=== PATIENT | female | born 1935 | race Caucasian/White ===

== ENCOUNTER → 2024-06-23 07:52 | Outpatient (REF) | payer OTHER, SELFPAY | LOC: DHCBC/DCA 07:52 | PROVIDERS: ATTENDING PHYSICIAN Internal Medicine; FAMILY PHYSICIAN Student in an Organized Health Care Education/Training Program | DX: I48.0 Paroxysmal atrial fibrillation (principal); R06.09 Other forms of dyspnea; I10 Essential (primary) hypertension | CPT/HCPCS: 78452; 93017; A9500; J2785 ==

== ENCOUNTER → 2024-06-29 09:08 | Outpatient (REF) | payer OTHER, SELFPAY | LOC: RCS 09:08 | PROVIDERS: ATTENDING PHYSICIAN Internal Medicine; FAMILY PHYSICIAN Family Medicine | DX: I48.0 Paroxysmal atrial fibrillation (principal); R06.09 Other forms of dyspnea; I10 Essential (primary) hypertension | CPT/HCPCS: 93225; 93226 ==

== ENCOUNTER → 2024-07-01 08:55 | Outpatient (REF) | payer OTHER, SELFPAY | LOC: RCS 08:55 | PROVIDERS: ATTENDING PHYSICIAN Internal Medicine; FAMILY PHYSICIAN Family Medicine | DX: I48.0 Paroxysmal atrial fibrillation (principal); R06.09 Other forms of dyspnea; I10 Essential (primary) hypertension | CPT/HCPCS: 93306 ==

== ENCOUNTER 2024-07-11 00:16 | Emergency (ER) | payer OTHER, SELFPAY ==
[2024-07-11] VITALS (13 sets, daily range): BP systolic 111–191; BP diastolic 51–98
--- NOTE | 2024-07-11 00:27 | ED.GENMED ---
History of Present Illness
General
Chief Complaint: Cardiac Symptoms
Source: patient, records and family
Exam Limitations: none
Time Seen by Provider: 07/11/24 00:21
Nursing documentation reviewed up to this point in time: agreed with
History of Present Illness
History of Present Illness:
Patient is an 88-year-old female who presents to the emergency department from home after developing a headache and upper chest pain waking her from sleep tonight. Initially according to family her speech was somewhat hesitant but not slurred.
Patient does feel lightheaded and off balance. Patient is on Eliquis for atrial fibrillation. Recently the patient was started on valsartan and discontinued from amlodipine. Patient is also on metoprolol. According to family and her [employer]
she was in and out of atrial fibrillation all day and did not feel well. Patient felt somewhat weak and lightheaded. But patient denied any shortness of breath or chest pain at that time. Patient states that the headache felt like a pain in her
sinuses but denies any nasal congestion, sore throat or cough. Patient denies any fever but does admit to chills. Patient was slightly nauseous without abdominal pain, vomiting or diarrhea. The day before last she had been at an event where she
had not ate or drank very much and had felt tired. Patient states this evening she felt very much like when she initially had atrial fibrillation.
Past History
Past History
ED Past Medical History: Arrthythmia (Atrial fibrillation), HTN, Hypercholesterolemia and Other (Psoriatic arthritis, ischemic colitis)
ED Past Surgical History: Other
Social History
Tobacco: Non-smoker
Alcohol: None
Family History
Family History: Negative Diabetes, Hypertension, Early CAD, Asthma or Cancer
Review of Systems
Review of Systems
All Other Systems: ROS reviewed and negative except as documented in HPI and ROS
Constitutional: Reports fatigue and chills; Denies fever
EENT: Reports no symptoms
Respiratory: Reports no symptoms
Cardiac: Reports chest pain and palpitations; Denies diaphoresis or syncope
ABD/GI: Reports nausea; Denies abdominal pain, vomiting, diarrhea or constipated
: Reports no symptoms
Musculoskeletal: Reports back pain (Chronic and unchanged)
Skin: Reports other (Chronic mild psoriasis)
Neurological: Reports no symptoms
Hematologic/Lymphatic: Reports no symptoms
Psychiatric: Reports no symptoms
Phy Exam
Physical Exam
Physical Exam:
Physical Exam
General: mild distress, alert and appropriate, well nourished, well hydrated
HENT: Normocephalic, supple with no lymphadenopathy, no thyromegaly
Eyes: Clear sclera, conjuctiva without injection
Heart: irregular rhythm and normal rate. No S3, S4. Grade 2/6 holosystolic murmur. No NVD, bruit
Lungs: No respiratory distress, no stridor, lung sounds clear and equal bilaterally, chest wall symmetrical and nontender
Abdomen: Soft, nontender, BS good
Neuro: Alert and oriented x 3, CN II - XII intact, no motor focality, no cerebellar dysfunction
Skin: no rash
Psychiatric: well kept. interactive and cooperative
Extremities: No edema, cyanosis, tenderness
Scores
Heart Failure Risk
Heart Failure Risk Score: Not Applicable
Heart Score for Chest Pain Patients
STEMI patient?: Not applicable
Withdrawal Assessment of Alcohol
Withdrawal Assessment Completed?: Not applicable
Course
Orders/Labs/Results
Orders:
Orders
07/11/24 00:21
CT Head W/o Iv Contrast Urgent
Comment:
Reason For Exam: headache on eliquis
0.9% Sodium Chloride 500 ml [Nss] 500 ml IV BOLUS
Morphine Sulfate 2 mg IV NOW STA
Ondansetron Injectable [Zofran] 4 mg IV NOW STA
07/11/24 00:22
Electrocardiogram (*1) Urgent
Reason for Study: Palpitations
EKG- Treatment ONCE
07/11/24 00:34
COVID-19 Antigen Urgent
Source: Nasal Swab
Complete Blood Count/With Diff Urgent
Comprehensive Metabolic Panel Urgent
Magnesium Urgent
Sed Rate [Erythrocyte Sed Rate] Urgent
07/11/24 01:18
Propofol [Diprivan] 20 ml .ROUTE .STK-MED
07/11/24 01:34
EKG [Electrocardiogram (*1)] Urgent
Reason for Study: Atrial Fibrillation
Other Reason for Exam: POST CARDIOVERSION
07/11/24 01:35
EKG- Treatment ONCE
Abnormal Lab Results
07/11/24
00:34
MCHC 32.3 L g/dL
(33.0-37.0)
Absolute Monos (auto) 0.9 H 10^3/uL
(0.1-0.6)
Monocytes % 9.7 H %
(1.7-9.3)
Glucose 117 H mg/dl
(70-99)
07/11/24 00:34
07/11/24 00:34
Vital Signs
Initial and Last Documented VS:
Initial Vital Signs
Pulse Resp BP Pulse Ox
100 20 190/78 100
07/11/24 00:19 07/11/24 00:19 07/11/24 00:19 07/11/24 00:19
Last Documented Vital Signs
Pulse Resp BP Pulse Ox
87 23 174/98 96
07/11/24 01:15 07/11/24 01:15 07/11/24 01:02 07/11/24 01:15
Procedures
Cardioversion
Indication:: Afib
Performed by:: melonie
Synchronized?: Yes
Energy Used: 200 joules
Number of attempts: 1
Successful?: Yes
Complications: none
ASA Risk Score: Class II
Any reaction or bad outcome to prior sedation/anesthesia?: No history of a reaction
Sedation level to be attained: deep
Chart and allergies reviewed: Yes
Patient reassessed prior to sedation: Yes
Time out completed at (validating right patient & procedure): 01:29
History of difficult intubation: No
Airway free of obstruction: Yes
Patient has a gag reflex: Yes
Patient is able to open mouth: Yes
Patient has no dentures: Yes
Patient has no loose teeth: Yes
Medication administered by Provider during Moderate Sedation: IV Propofol (mg)
Total dose administered: 60
Time drug administered: :
Start Time: :29
Stop Time: 01:40
*Radiology
Radiology exam reviewed: radiology read reviewed (ct head ok)
*Pulse Oximetry
Patient hypoxic: no
*EKG
Interpreted by ED Provider?: Yes
EKG Intrepretation Date: 07/11/24
EKG Intrepretation Time: 01:49
Interpretation: abnormal
Comparison EKG: changes noted
Heart Rate: 88
Rate: normal
Rhythm: a-fib
[place]: normal axis
Interval: normal QT interval
QRS Pattern: normal QRS
Ischemia: non-specific ST changes
*Conference Coordinator Interpretation
Rate: normal
Interpretation: abnormal
Heart Rate: 88
Rhythm: a-fib
*Critical Care Note
Total Time (30-74mins, 75-104mins- exclusive of procedures): Not Applicable
Update Note
Update Note:
Repeat EKG showed a rate of 68 and normal sinus rhythm. Patient was successfully converted. Anticipate discharge of the patient.
ED Attending Note
-
Portions of this chart may have been created with voice recognition software.� Occasional wrong word or��sound alike� substitutions may have occurred due to the inherent limitations of voice recognition software.
Discharge Plan
Departure
Patient Disposition: Home (Routine Discharge)
Date of Disposition: 11/26/24
Time of Disposition: 01:49
Patient with high blood pressure during this ER visit?: Yes
Condition: Good
Covid-19: Negative COVID-19
Discharge Problem:
Atrial fibrillation with controlled ventricular rate, Encounter for cardioversion procedure
Instructions: Atrial Fibrillation (DC), MODERATE SEDATION ADULT, BLOOD PRESSURE
Prescriptions:
No Action
quinapril [Accupril] 10 MG tablet
40 mg PO DAILY
etanercept [Enbrel] 50 MG/ML syringe
50 mg SQ PERKINS
hydrochlorothiazide 12.5 MG tablet
12.5 mg PO DAILY
amlodipine 2.5 MG tablet
2.5 mg PO BID
simvastatin 20 MG tablet
20 mg PO QPM
metoprolol tartrate 25 MG tablet
50 mg PO BID
cholecalciferol (vitamin D3) 2,000 UNITS tablet
2,000 units PO DAILY
loperamide 2 MG capsule
2 mg PO Q6HPRN PRN (Reason: diarrhea) 0RF
Lactobac 2-Bifido 1-S. therm [High Potency Probiotic] 1 CAP capsule
1 cap PO DAILY 0RF
amoxicillin-pot clavulanate 1 TABLET tablet
1 tab PO Q12 7 Days Qty: 14 0RF
Rx Instructions:
next dose 9/16 PM
trazodone 50 MG tablet
50 mg PO TID PRN (Reason: anxiety) Qty: 3 0RF
lorazepam 0.5 MG tablet
0.5 mg PO Q4HPRN PRN (Reason: anxiety) Qty: 4 0RF
trazodone 50 MG tablet
50 mg PO TID Qty: 3 0RF
lorazepam 0.5 MG tablet
0.5 mg PO Q4HPRN PRN (Reason: anxiety) Qty: 4 0RF
hydrocodone-acetaminophen 5-325 mg tablet
1 tab PO Q4H PRN (Reason: pain) Qty: 60 0RF
alprazolam [Xanax] 0.5 mg tablet
0.5 mg PO BID PRN (Reason: sleep) Qty: 30 0RF
hydrocodone-acetaminophen 5-325 mg tablet
1 tab PO Q6H PRN (Reason: pain) Qty: 60 0RF
hydrocodone-acetaminophen 5-325 mg tablet
1 tab PO Q4H PRN (Reason: pain) Qty: 60 0RF
hydrocodone-ibuprofen 7.5-200 mg tablet
1 tab PO Q4H PRN (Reason: Pain) Qty: 30 0RF
Eliquis 5 mg tablet
5 mg PO BID Qty: 60 3RF
hydrocodone-acetaminophen 7.5-325 mg tablet
1 tab PO Q6H PRN (Reason: Pain) Qty: 60 0RF
ondansetron [Zofran ODT] 8 MG tablet,disintegrating
8 mg PO TID PRN (Reason: nausea/vomiting) Qty: 30 0RF
Activity Restrictions/Additional Instructions:
Continue present medications and therapy. Make sure to follow-up with your cloth shrinking supervisor and your family physician.
Interventions
Interventions:
*Risk Screen - Suicide Last Done: 07/11/24 00:19
*Neglect/Abuse Screening Last Done: 07/11/24 00:19
Discharge Date and Time
Print Language: CITIZEN OF [place]
[2024-07-11] MEDS: MORPHINE SULFATE 2 MG IV (00:43)
[2024-07-11] MEDS: ZOFRAN 4 MG IV (00:43)
[2024-07-11] MEDS: NSS 500 IV (00:46)
[2024-07-11 00:54] LABS: % Basophils 0.8 % (0-2); % Immature Granulocytes 0.2 % (0-0.5); % Lymphocytes 34.4 % (20.5-51.1); % Monocytes 9.7 % (1.7-9.3); % Neutrophils 53.9 % (42.2-75.2); Absolute Basophils 0.1 10^3/uL (0-0.2); Absolute Eosinophils 0.1 10^3/uL (0-0.7); Absolute Monocytes 0.9 10^3/uL (0.1-0.6); Absolute Neutrophils 4.7 10^3/uL (1.4-6.5); Hematocrit 38.7 % (37.0-47.0); Hemoglobin 12.5 g/dL (12.0-16.0); Mean Corp Hgb Conc. 32.3 g/dL (33.0-37.0); Mean Corpuscular Hgb 29.1 pg (27.0-31.0); Mean Corpuscular Volume 90.2 fL (81.0-99.0); Mean Platelet Volume 9.3 fL (7.4-10.4); Nucleated Red Blood Cells % 0 %; Platelet Count 295 10^3/uL (130-400); Red Blood Cell Count 4.29 10^6/uL (4.20-5.40); Red Cell Dist. Width 12.9 % (11.5-14.5); White Blood Cell Count 8.7 10^3/uL (4.8-10.8)
[2024-07-11 00:57] LABS: ALT (SGPT) 12 U/L (0-35); AST (SGOT) 19 U/L (14-36); Albumin 4.4 g/dl (3.5-5.0); Alkaline Phosphatase 59 U/L (38-126); Blood Urea Nitrogen 17 mg/dl (7-17); Calcium 9.1 mg/dl (8.4-10.2); Carbon Dioxide 27 mmol/L (22-30); Chloride 101 mmol/L (98-107); Glucose 117 mg/dl (70-99); Potassium 4.3 mmol/L (3.5-5.1); Sodium 139 mmol/L (135-145); Total Bilirubin 1.1 mg/dl (0.2-1.3); eGFR > 60.00
[2024-07-11 01:02] LABS: COVID-19 Antigen Negative (Negative)
[2024-07-11 01:10] LABS: Erythrocyte Sed Rate 17 mm/hour (0-20)
--- NOTE | 2024-07-11 01:49 | EDRN ---
At 01:37, following moderate sedation, pt. became apneic for a small period of time, pulse ox. dropped to 87%, BVM initiated by Dr. Chan for a few seconds, then pt. became more alert, breathing on own, nasal cannula turned up to 6L NC,
fluids infusing via bolus, pulse. ox. increased to 97% on 6LNC.
== END 2024-07-11 02:24 | disposition home or self-care (01) ==
LOC: EMR 00:16
PROVIDERS: EMERGENCY PHYSICIAN Emergency Medicine; FAMILY PHYSICIAN Family Medicine
DX: R51.9 Headache, unspecified (principal); R07.89 Other chest pain; I48.91 Unspecified atrial fibrillation; I10 Essential (primary) hypertension; E78.00 Pure hypercholesterolemia, unspecified; L40.50 Arthropathic psoriasis, unspecified; K55.9 Vascular disorder of intestine, unspecified; Z79.01 Long term (current) use of anticoagulants; Z82.49 Family history of ischemic heart disease and other diseases of the circulatory system; Z86.73 Personal history of transient ischemic attack (TIA), and cerebral infarction without residual deficits
CPT/HCPCS: 99284; 92960; 96374; 96375; 70450; 80053; 83735; 85025; 85652; 87811; 93005

== ENCOUNTER 2024-09-03 10:59 | Emergency (ER) | payer OTHER, SELFPAY ==
[2024-09-03] VITALS (12 sets, daily range): BP systolic 103–132; BP diastolic 52–68
--- NOTE | 2024-09-03 11:53 | ED.GENMED ---
History of Present Illness
General
Chief Complaint: Heart Rate Problem
Time Seen by Provider: 09/03/24 11:31
History of Present Illness
History of Present Illness:
Patient is a 89-year-old woman with history of A-fib on Eliquis, hypertension presenting to the emergency department blood pressure issues. Patient's daughter and son-in-law are at bedside. They state that lately she has had changes in her blood
pressure medication she is on amlodipine as well as valsartan. She is also on metoprolol. The notes that she has been going in and out of A-fib with heart rates in the 90s. During those times her blood pressure is occasionally low. The lowest at
home with systolic in the 96. They do note that when she is in normal sinus rhythm her blood pressure is not as problematic. She has been more tired and weak. She has not missed any doses of her Eliquis. Unclear cause of the triggers. Denies
any chest pain shortness of breath nausea vomiting abdominal pain urinary symptoms or rashes.
Past History
Past History
ED Past Medical History: Arrthythmia (Atrial fibrillation), HTN, Hypercholesterolemia and Other (Psoriatic arthritis, ischemic colitis)
ED Past Surgical History: Other
Social History
Tobacco: Non-smoker
Alcohol: None
Family History
Family History: Negative Diabetes, Hypertension, Early CAD, Asthma or Cancer
Phy Exam
Physical Exam
Physical Exam:
GENERAL: in no acute distress
HEENT: normocephalic, extraocular movements intact, moist oral mucosa
NECK: normal inspection
RESPIRATORY: no respiratory distress, clear to auscultation bilaterally
CARDIOVASCULAR: Irregularly irregular
ABDOMEN/: soft, non-distended, non-tender to palpation, no rebound or guarding
EXTREMITIES: non-tender, no edema/swelling
NEUROLOGIC: awake and alert, moves all extremities
SKIN: warm
Course
Orders/Labs/Results
Orders:
Orders
09/03/24 10:59
Electrocardiogram (*1) Urgent
Reason for Study: Atrial Fibrillation
09/03/24 11:00
EKG- Treatment ONCE
09/03/24 12:08
Basic Metabolic Panel Urgent
Complete Blood Count/With Diff Urgent
Magnesium Urgent
09/03/24 12:55
Propofol [Diprivan] 20 ml .ROUTE .STK-MED
09/03/24 13:28
EKG [Electrocardiogram (*1)] Urgent
Reason for Study: Other
Other Reason for Exam: s/p cardioversion
09/03/24 13:29
EKG- Treatment ONCE
Abnormal Lab Results
09/03/24
12:08
Absolute Monos (auto) 0.8 H 10^3/uL
(0.1-0.6)
BUN 20 H mg/dl
(7-17)
Glucose 104 H mg/dl
(70-99)
09/03/24 12:08
09/03/24 12:08
Vital Signs
Initial and Last Documented VS:
Initial Vital Signs
Temp Pulse Resp BP Pulse Ox
98.4 F 80 13 116/63 100
09/03/24 11:09 09/03/24 11:09 09/03/24 11:09 09/03/24 11:09 09/03/24 11:09
Last Documented Vital Signs
Temp Pulse Resp BP Pulse Ox
98.8 F 62 18 104/61 98
09/03/24 13:45 09/03/24 13:45 09/03/24 13:45 09/03/24 13:45 09/03/24 13:45
Procedures
Cardioversion
Indication:: Afib
Performed by:: Dr Jaramillo
Synchronized?: Yes
Energy Used: 200 joules
Number of attempts: 2
Successful?: Yes
ASA Risk Score: Class II
Any reaction or bad outcome to prior sedation/anesthesia?: No history of a reaction
Sedation level to be attained: moderate
Chart and allergies reviewed: Yes
Patient reassessed prior to sedation: Yes
Time out completed at (validating right patient & procedure): 13:20
History of difficult intubation: No
Airway free of obstruction: Yes
Patient has a gag reflex: Yes
Patient is able to open mouth: Yes
Patient has no dentures: Yes
Patient has no loose teeth: Yes
Medication administered by Provider during Moderate Sedation: IV Propofol (mg)
Total dose administered: 40
Time drug administered: 13:21
Start Time: 13:21
Stop Time: 13:40
MDM/Problems Addressed
Differential Diagnosis Includes:
Patient is a 89-year-old woman with history of proximal A-fib on Eliquis, hypertension on amlodipine and valsartan presenting to the emergency department with low blood pressure and feeling as if she is in A-fib. On arrival EKG per my
interpretation A-fib with heart rate in the 70s. Given the hypotension could be related to the arrhythmia versus electrolyte derangement versus CHERYL. Will check blood work. Per chart review it appears the patient had multiple ED visits for
paroxysmal A-fib that required cardioversion. I did discuss cardioversion with patient and family at bedside. Likely anticipate cardioversion for symptomatic A-fib.
*Critical Care Note
Total Time (30-74mins, 75-104mins- exclusive of procedures): Not Applicable
Update Note
Update Note:
Blood work unremarkable. On reevaluation patient still with blood pressure in the low 100s in A-fib with a heart rate in the 80s. Will proceed with cardioversion. It was successful. Please see scanned EKG
On reevaluation patient remains in normal sinus rhythm. Her blood pressure has improved. She tolerated p.o. and ambulated. Will discharge her at this time.
ED Attending Note
-
Portions of this chart may have been created with voice recognition software.� Occasional wrong word or��sound alike� substitutions may have occurred due to the inherent limitations of voice recognition software.
Discharge Plan
Departure
Patient Disposition: Home (Routine Discharge)
Date of Disposition: 09/03/24
Time of Disposition: 14:25
Patient with high blood pressure during this ER visit?: No
Discharge Problem:
Paroxysmal A-fib
Instructions: Atrial Fibrillation (DC), Procedural Sedation, Adult ED
Prescriptions:
No Action
quinapril [Accupril] 10 MG tablet
40 mg PO DAILY
etanercept [Enbrel] 50 MG/ML syringe
50 mg SQ PERKINS
hydrochlorothiazide 12.5 MG tablet
12.5 mg PO DAILY
amlodipine 2.5 MG tablet
2.5 mg PO BID
simvastatin 20 MG tablet
20 mg PO QPM
metoprolol tartrate 25 MG tablet
50 mg PO BID
cholecalciferol (vitamin D3) 2,000 UNITS tablet
2,000 units PO DAILY
loperamide 2 MG capsule
2 mg PO Q6HPRN PRN (Reason: diarrhea) 0RF
Lactobac 2-Bifido 1-S. therm [High Potency Probiotic] 1 CAP capsule
1 cap PO DAILY 0RF
amoxicillin-pot clavulanate 1 TABLET tablet
1 tab PO Q12 7 Days Qty: 14 0RF
Rx Instructions:
next dose 9/16 PM
trazodone 50 MG tablet
50 mg PO TID PRN (Reason: anxiety) Qty: 3 0RF
lorazepam 0.5 MG tablet
0.5 mg PO Q4HPRN PRN (Reason: anxiety) Qty: 4 0RF
trazodone 50 MG tablet
50 mg PO TID Qty: 3 0RF
lorazepam 0.5 MG tablet
0.5 mg PO Q4HPRN PRN (Reason: anxiety) Qty: 4 0RF
hydrocodone-acetaminophen 5-325 mg tablet
1 tab PO Q4H PRN (Reason: pain) Qty: 60 0RF
alprazolam [Xanax] 0.5 mg tablet
0.5 mg PO BID PRN (Reason: sleep) Qty: 30 0RF
hydrocodone-acetaminophen 5-325 mg tablet
1 tab PO Q6H PRN (Reason: pain) Qty: 60 0RF
hydrocodone-acetaminophen 5-325 mg tablet
1 tab PO Q4H PRN (Reason: pain) Qty: 60 0RF
hydrocodone-ibuprofen 7.5-200 mg tablet
1 tab PO Q4H PRN (Reason: Pain) Qty: 30 0RF
Eliquis 5 mg tablet
5 mg PO BID Qty: 60 3RF
hydrocodone-acetaminophen 7.5-325 mg tablet
1 tab PO Q6H PRN (Reason: Pain) Qty: 60 0RF
hydrocodone-acetaminophen 10-325 mg tablet
1 tab PO Q6H PRN (Reason: Pain) Qty: 40 0RF
hydrocodone-acetaminophen 5-325 mg tablet
1 tab PO Q4H PRN (Reason: Pain) Qty: 30 0RF
ondansetron [Zofran ODT] 8 MG tablet,disintegrating
8 mg PO TID PRN (Reason: nausea/vomiting) Qty: 30 0RF
Referrals:
Jerrod Diego MD [Family Provider] -
Activity Restrictions/Additional Instructions:
You were seen in the Emergency Department today for low blood pressure and atrial fibrillation. While you were here we performed blood work, which was reassuring. We did cardiovert you and you are back in your normal rhythm. Please follow-up with
your food service representative for any adjustments in your medications.
We would like for you to follow up with your primary care physician for further evaluation. If you experience fever, worsening of your symptoms, or develop any other new or concerning symptoms, please return to the Emergency Department immediately.
Please see the attached sheet for additional information.
Thank you for choosing us for your care
Interventions
Interventions:
*Risk Screen - Suicide Last Done: 09/03/24 11:09
*General Assessment Last Done: 09/03/24 11:09
*Neglect/Abuse Screening Last Done: 09/03/24 11:09
ED- Fall Risk Assessment Last Done: 09/03/24 11:47
*ED COVID-19 Vaccine History Last Done: 09/03/24 13:38
ED- Cardiac Assessment Last Done: 09/03/24 11:47
ED- Pulmonary Assessment Last Done: 09/03/24 11:47
Discharge Date and Time
Print Language: MAURIT[place]
[2024-09-03 12:20] LABS: % Basophils 1.2 % (0-2); % Eosinophils 1.2 % (0-6); % Immature Granulocytes 0.2 % (0-0.5); % Lymphocytes 23.5 % (20.5-51.1); % Monocytes 9.1 % (1.7-9.3); % Neutrophils 64.8 % (42.2-75.2); Absolute Basophils 0.1 10^3/uL (0-0.2); Absolute Eosinophils 0.1 10^3/uL (0-0.7); Absolute Monocytes 0.8 10^3/uL (0.1-0.6); Absolute Neutrophils 5.4 10^3/uL (1.4-6.5); Hematocrit 38.7 % (37.0-47.0); Hemoglobin 12.8 g/dL (12.0-16.0); Mean Corp Hgb Conc. 33.1 g/dL (33.0-37.0); Mean Corpuscular Hgb 29.3 pg (27.0-31.0); Mean Corpuscular Volume 88.6 fL (81.0-99.0); Mean Platelet Volume 9.5 fL (7.4-10.4); Nucleated Red Blood Cells % 0 %; Platelet Count 328 10^3/uL (130-400); Red Blood Cell Count 4.37 10^6/uL (4.20-5.40); Red Cell Dist. Width 12.5 % (11.5-14.5); White Blood Cell Count 8.4 10^3/uL (4.8-10.8)
[2024-09-03 12:31] LABS: Blood Urea Nitrogen 20 mg/dl (7-17); Calcium 9.4 mg/dl (8.4-10.2); Carbon Dioxide 27 mmol/L (22-30); Chloride 101 mmol/L (98-107); Estimated Creatinine Clearance 36 ml/min; Glucose 104 mg/dl (70-99); Magnesium 2.3 mg/dl (1.6-2.3); Potassium 4.3 mmol/L (3.5-5.1); Sodium 138 mmol/L (135-145); eGFR 54.53
--- NOTE | 2024-09-03 13:23 | EDRN ---
Patient shocked with 200 J by
--- NOTE | 2024-09-03 13:24 | EDRN ---
Patient remains in Afib. Patient shocked second time with 200 J by .
--- NOTE | 2024-09-03 14:30 | EDRN ---
Reviewed discharge instructions with patient and her daughter. Verbalized understanding. Taken to car in wheelchair.
== END 2024-09-03 14:40 | disposition home or self-care (01) ==
LOC: EMR 10:59
PROVIDERS: EMERGENCY PHYSICIAN Student in an Organized Health Care Education/Training Program; FAMILY PHYSICIAN Family Medicine
DX: I48.0 Paroxysmal atrial fibrillation (principal); I10 Essential (primary) hypertension; Z79.01 Long term (current) use of anticoagulants
CPT/HCPCS: 92960; 99285; 99152; 80048; 83735; 85025; 93005

== ENCOUNTER 2024-10-03 13:16 | Inpatient (IN) | payer OTHER, SELFPAY ==
[2024-10-03 13:30] VITALS: BMI 25.0
[2024-10-03 13:34] VITALS: BP 140/55
--- NOTE | 2024-10-03 13:42 | W.PN.CD ---
Today's Communication / Plan
-
*This is the H&P summary. Please see scanned H&P*
Dofetilide loading per protocol
Await EKG
Await BMP for renal assessment
Impression / Plan
-
IMPRESSION/PLAN: 89F with paroxysmal atrial fibrillation (DCCVs on�03/12/2023, 07/11/2024, 09/03/2024, on Eliquis), labile hypertension, moderate tricuspid regurgitation, mild to moderate aortic regurgitation, mild to moderate mitral regurgitation,
hyperlipidemia, and psoriatic arthritis presenting for dofetilide loading.
Primary Technical Staff Assistant: Dr. Oliva (formerly Dr. Andrade)
Paroxysmal atrial fibrillation
-Symptomatic recurrent episodes, plan for dofetilide loading
-EKG and BNP and then start dofetilide loading per protocol, this requires intensive monitoring
-Oral Anticoagulation: Apixaban 5 mg twice daily, she denies missed doses and abnormal bleeding
-[id number]: score at least 4 (HTN, age 75 or more, female gender)
-Maintain telemetry
Hypertension, labile
-Continue outpatient regimen, follow
Tricuspid regurgitation, moderate
Aortic regurgitation, mild to moderate
Mitral regurgitation, mild to moderate
Mixed hyperlipidemia, on simvastatin
RA, on weekly Enbrel
SUBJECTIVE:
Denies chest pain, shortness of breath, and dizziness
Physical Exam
Vital Signs/Labs
Vital Signs
Temp Pulse Resp Pulse Ox
98.2 F 68 18 99
10/03/24 13:39 10/03/24 13:39 10/03/24 13:39 10/03/24 13:39
Physical Exam
Constitutional: No acute distress and Comfortable
EENT: Anicteric and Moist mucous membranes
Cardiovascular: Rhythm & rate is regular, Pedal edema is absent, Systolic murmur present and S1S2 is normal
Respiratory: Respiratory effort normal and Lungs clear to auscul.
GI: Soft, Distention absent, Flat, Non tender and Normal bowel sounds
Neuro/Psych: AO x 3
Other: Skin (warm and dry)
Data Reviewed
-
Date of Service: October 03, 2024
EKG: Ordered by me
Labs: Labs Ordered by me
Old Records: Reviewed
--- NOTE | 2024-10-03 14:40 | W.CARD.TIKOS ---
Initiate Tikosyn
-
I verify that the patient has not taken any verapamil (Isoptin/Calan), ketoconazole (Nizoral), cimetidine (Tagamet), trimethoprim (Trimpex), trimethoprim/sulfamethoxazole (Bactrim), megesterol (Megace), prochlorperazine (Compazine),
hydrochlorothiazide (HCTZ), dolutegravir (Tivicay) or any Class I or Class III anti-arrhythmic within the last three days
AND
I verify that the patient has not taken amiodarone within the last THREE months, or that the patient's amiodarone plasma concentration is <0.3 mcg/mL.
Baseline QTc (in msec): 420
QTc interval is greater than 440msec without conduction abnormality OR greater than 500msec with a conduction abnormality, but acceptable to proceed per Cardiology attending.
Ordering Physician: Syed Oliva
[2024-10-03 15:52] LABS: Blood Urea Nitrogen 19 mg/dl (7-17); Calcium 9.2 mg/dl (8.4-10.2); Carbon Dioxide 30 mmol/L (22-30); Chloride 100 mmol/L (98-107); Estimated Creatinine Clearance 39 ml/min; Glucose 97 mg/dl (70-99); Potassium 4.8 mmol/L (3.5-5.1); Sodium 135 mmol/L (135-145); eGFR > 60.00
[2024-10-03 16:14] VITALS: BMI 25.0
[2024-10-03] MEDS: LIPITOR 10 MG PO (18:25)
[2024-10-03] MEDS: TIKOSYN 125 MCG PO (18:25)
[2024-10-03 19:00] VITALS: BP 150/61
--- NOTE | 2024-10-03 19:18 | PTCARENOTE ---
Received pt as a direct admission for tikosyn loading. VSS. Discussed tikosyn protocol. Encouraged questions. Pt verbalized understanding. Will monitor.
[2024-10-03 20:26] VITALS: BP 141/54
[2024-10-03] MEDS: LOPRESSOR 12.5 MG PO (20:26)
[2024-10-03] MEDS: ELIQUIS 5 MG PO (20:27)
[2024-10-03] MEDS: NORVASC 2.5 MG PO (20:27)
[2024-10-03 22:14] VITALS: BP 127/47
--- NOTE | 2024-10-03 23:00 | PTCARENOTE ---
report received from previous RN, walking rounds done. pt sleeping. VSS. NSR 60s-70s. POX 99% on room air. PIV intact and patent. see worklist for full assessment, VS, and interventions.
[2024-10-04] VITALS (7 sets, daily range): BP systolic 110–163; BP diastolic 42–65; BMI 25.0
--- NOTE | 2024-10-04 02:40 | DOWNTIME ---
There was a [employer] Client Manager Document Downtime on 10/04/2024 from 0100 to 10/04/2023 at 0235 . Downtime documentation of patient's care, including medication administrations, has been reconciled in the electronic record per guidelines. Refer to the
patient's paper chart under the miscellaneous tab to see printed paper medication records and downtime forms.
[2024-10-04] MEDS: TIKOSYN 125 MCG PO ×2 (05:51→18:08)
--- NOTE | 2024-10-04 05:55 | PTCARENOTE ---
no changes in assessment, VSS. SR 60s. POX 97% on room air. 2nd dose of Tikosyn given. EKG ordered for 0800. pt resting between care.
[2024-10-04] MEDS: ELIQUIS 5 MG PO ×2 (08:14→19:27)
[2024-10-04] MEDS: VITAMIN D3 (cholecalciferol) 50 MCG PO (08:14)
[2024-10-04] MEDS: NORVASC 2.5 MG PO ×2 (08:14→19:27)
[2024-10-04] MEDS: LOPRESSOR 12.5 MG PO ×2 (08:14→19:27)
[2024-10-04] MEDS: DIOVAN 160 MG PO (08:14)
--- NOTE | 2024-10-04 08:38 | W.PN.CD ---
Today's Communication / Plan
-
-QTc remains stable; has received 2 doses of Tikosyn thus far.
-Continue child monitor; telemetry stable.
Impression / Plan
-
IMPRESSION/PLAN: 89F with paroxysmal atrial fibrillation (DCCVs on�03/12/2023, 07/11/2024, 09/03/2024, on Eliquis), labile hypertension, moderate tricuspid regurgitation, mild to moderate aortic regurgitation, mild to moderate mitral regurgitation,
hyperlipidemia, and psoriatic arthritis presenting for dofetilide loading.
Primary Web Content Director: Dr. Oliva (formerly Dr. Andrade)
Paroxysmal atrial fibrillation--Tikosyn loading:
-Symptomatic recurrent episodes, plan for dofetilide loading
-QTc remains stable; has received 2 doses of Tikosyn thus far.
-Oral Anticoagulation: Continue Apixaban 5 mg twice daily; she denies missed doses and abnormal bleeding.
-[id number]: score at least 4 (HTN, age 75 or more, female gender)
-Continue child monitor; telemetry stable.
Hypertension, labile
-Stable; continue current medications.
Tricuspid regurgitation, moderate
Aortic regurgitation, mild to moderate
Mitral regurgitation, mild to moderate
Mixed hyperlipidemia, on simvastatin
RA, on weekly Enbrel
SUBJECTIVE:
Denies chest pain, shortness of breath, and dizziness
Physical Exam
Vital Signs/Labs
Vital Signs
Temp Pulse Resp BP Pulse Ox
98.3 F 72 20 140/50 95
10/04/24 07:24 10/04/24 08:14 10/04/24 07:24 10/04/24 08:14 10/04/24 07:24
10/03/24 10/04/24 10/05/24
06:59 06:59 06:59
Actual Weight 67.1 kg
10/03/24 15:28
Physical Exam
Constitutional: No acute distress and Comfortable
EENT: Anicteric
Cardiovascular: Rhythm & rate is regular, Pedal edema is absent, Systolic murmur present (2/6) and S1S2 is normal
Respiratory: Respiratory effort normal and Lungs clear to auscul.
GI: Soft
Neuro/Psych: AO x 3
Other: Skin (Warm, dry, intact)
Data Reviewed
-
Date of Service: October 04, 2024
EKG: Tracing Personally Visualized and interpreted (Telemetry: Sinus rhythm)
Labs: Labs Reviewed by me
--- NOTE | 2024-10-04 14:45 | CM ---
CM following for DC planning needs.
CM met w/ patient and 2 dtrs. at bedside to complete initial assessment.
Pt. resides alone in a private, [place]+ community, in a [address] home. Functionally, patient is indep. w/ ADLs, mobilities. She uses a SPC occasionally and has a RW at home if needed but does not use.
Pt. has prescription plan and uses [facility] in [place] for prescription needs.
Antic. DC to home without needs once medically stable.
[2024-10-04] MEDS: LIPITOR 10 MG PO (18:07)
--- NOTE | 2024-10-04 19:00 | PTCARENOTE ---
report received from previous RN, walking rounds done. pt AAOx4, pt denies any pain. VSS. NSR 60s-70s. POX 95% on room air. PIV intact and patent. EKG ordered for 1999. see worklist for full assessment, VS, and interventions. pt resting comfortably
w call mackey in reach.
--- NOTE | 2024-10-04 19:13 | PTCARENOTE ---
Discussed roseannesyn protocol w/ pt. Pt verbalized understanding. Will monitor.
[2024-10-05 05:31] VITALS: BP 161/55
[2024-10-05] MEDS: TIKOSYN 125 MCG PO ×2 (06:10→17:53)
--- NOTE | 2024-10-05 06:15 | PTCARENOTE ---
no changes in assessment, VSS. NSR 60s-70s. POX 96% on room air. 0600 Tikosyn given. EKG ordered for 0800. pt sleeping between care.
[2024-10-05 07:36] VITALS: BP 138/52
[2024-10-05] MEDS: LOPRESSOR 12.5 MG PO ×2 (08:38→19:58)
[2024-10-05] MEDS: VITAMIN D3 (cholecalciferol) 50 MCG PO (08:38)
[2024-10-05] MEDS: DIOVAN 160 MG PO (08:38)
[2024-10-05] MEDS: ELIQUIS 5 MG PO ×2 (08:38→19:59)
[2024-10-05] MEDS: NORVASC 2.5 MG PO ×2 (08:38→19:59)
--- NOTE | 2024-10-05 08:41 | W.PN.CD ---
Today's Communication / Plan
-
continue tikosyn 125mcg q12hr
-doses # 4 and 5 today
Impression / Plan
-
IMPRESSION/PLAN: 89F with paroxysmal atrial fibrillation (DCCVs on�03/12/2023, 07/11/2024, 09/03/2024, on Eliquis), labile hypertension, moderate tricuspid regurgitation, mild to moderate aortic regurgitation, mild to moderate mitral regurgitation,
hyperlipidemia, and psoriatic arthritis presenting for dofetilide loading.
Primary Clamshell Operator: Dr. Oliva (formerly Dr. Andrade)
Paroxysmal atrial fibrillation--Tikosyn loading:
-this requires close monitoring of tele and EKG for 6 doses
-Symptomatic recurrent episodes of A fib
-Oral Anticoagulation: Continue Apixaban 5 mg twice daily; she denies missed doses and abnormal bleeding.
-[id number]: score at least 4 (HTN, age 75 or more, female gender)
-continue tikosyn 125mcg q12hr
-doses # 4 and 5 today
-QTc has been stable 450-460msec
Hypertension, labile
-Stable; continue current medications (amlodipine, valsartan)
Tricuspid regurgitation, moderate
Aortic regurgitation, mild to moderate
Mitral regurgitation, mild to moderate
Mixed hyperlipidemia, on simvastatin
RA, on weekly Enbrel
Physical Exam
Vital Signs/Labs
Vital Signs
Temp Pulse Resp BP Pulse Ox
98.6 F 58 20 127/42 98
10/05/24 07:36 10/04/24 23:00 10/05/24 07:36 10/04/24 19:27 10/05/24 07:36
10/04/24 10/05/24 10/06/24
06:59 06:59 06:59
Actual Weight 67.1 kg
10/03/24 15:28
Physical Exam
Constitutional: No acute distress and Comfortable
EENT: Moist mucous membranes
Cardiovascular: Rhythm & rate is regular, Pedal edema is absent, JVD pressure is normal and Systolic murmur present
Respiratory: Respiratory effort normal and Lungs clear to auscul.
Neuro/Psych: AO x 3
Data Reviewed
-
Date of Service: October 05, 2024
EKG: Tracing Personally Visualized and interpreted (NSR 69, QTc 452) and Other (Tele: SR/SB 50s-60s)
--- NOTE | 2024-10-05 10:06 | PTCARENOTE ---
Patient comfortable, denies pain or shortness of breath. NSR on telemetry. Dose #4 of Tikosyn given at 0600, EKG 0800 QTC 432. Plan of care reviewed with patient, call mackey in reach
[2024-10-05 11:03] VITALS: BP 115/55
[2024-10-05 15:34] VITALS: BP 113/53
[2024-10-05] MEDS: LIPITOR 10 MG PO (17:53)
[2024-10-05 19:53] VITALS: BP 127/43
--- NOTE | 2024-10-05 21:09 | PTCARENOTE ---
assumed care of patient at the change of shift. AAOx3. independent in the room. SR on tele 60s-70s. bp stable. QTc post 5th dose Tikosyn- 441. reviewed plan of care with patient and verbalized understanding. call mackey within reach. makes needs
known.
[2024-10-05 22:41] VITALS: BP 123/50
[2024-10-06 04:38] VITALS: BP 142/58
[2024-10-06] MEDS: TIKOSYN 125 MCG PO (06:02)
[2024-10-06 06:03] VITALS: BP 144/50
[2024-10-06 08:30] VITALS: BP 127/47
[2024-10-06] MEDS: LOPRESSOR 12.5 MG PO (08:50)
[2024-10-06] MEDS: VITAMIN D3 (cholecalciferol) 50 MCG PO (08:50)
[2024-10-06] MEDS: DIOVAN 160 MG PO (08:50)
[2024-10-06] MEDS: NORVASC 2.5 MG PO (08:50)
[2024-10-06] MEDS: ELIQUIS 5 MG PO (08:50)
--- NOTE | 2024-10-06 10:12 | W.PN.CD ---
Today's Communication / Plan
-
continue tikosyn 125mcg q12hr
needs final EKG this AM to make sure stable for d/c
Impression / Plan
-
IMPRESSION/PLAN: 89F with paroxysmal atrial fibrillation (DCCVs on�03/12/2023, 07/11/2024, 09/03/2024, on Eliquis), labile hypertension, moderate tricuspid regurgitation, mild to moderate aortic regurgitation, mild to moderate mitral regurgitation,
hyperlipidemia, and psoriatic arthritis presenting for dofetilide loading.
Primary Public Administration Professor: Dr. Oliva (formerly Dr. Andrade)
Paroxysmal atrial fibrillation--Tikosyn loading: high risk medication
-this requires close monitoring of tele and EKG for 6 doses
-Symptomatic recurrent episodes of A fib
-Oral Anticoagulation: Continue Apixaban 5 mg twice daily; she denies missed doses and abnormal bleeding.
-[id number]: score at least 4 (HTN, age 75 or more, female gender)
-continue tikosyn 125mcg q12hr
-doses # 6 today
-QTc has been stable: last 441 msec
-needs final EKG this AM to make sure stable for d/c
Hypertension, labile
-Stable; continue current medications (amlodipine, valsartan)
Tricuspid regurgitation, moderate
Aortic regurgitation, mild to moderate
Mitral regurgitation, mild to moderate
Mixed hyperlipidemia, on simvastatin
RA, on weekly Enbrel
Physical Exam
Vital Signs/Labs
Vital Signs
Temp Pulse Resp BP Pulse Ox
98.3 F 67 16 127/47 95
10/06/24 04:38 10/06/24 09:00 10/06/24 04:38 10/06/24 08:30 10/06/24 04:38
10/03/24 15:28
Physical Exam
Constitutional: No acute distress and Comfortable
EENT: Moist mucous membranes
Cardiovascular: Rhythm & rate is regular, Pedal edema is absent, JVD pressure is normal and Systolic murmur present
Respiratory: Respiratory effort normal and Lungs clear to auscul.
Neuro/Psych: AO x 3
Data Reviewed
-
Date of Service: October 06, 2024
EKG: Tracing Personally Visualized and interpreted (NSR, QTc 441) and Other (SR 60s, no arrhythmias)
--- NOTE | 2024-10-06 11:44 | W.DS.TRANS ---
DC Summary - Clinical Nurse Educator
-
Discharge Instructions:
Sleep Apnea Risk Intermediate
Discharge Diagnosis/Procedures Dofetilide loading
Paroxysmal atrial fibrillation
Diet Low Sodium
Activity No restrictions
Driving Restrictions As prior to admission
Bathing Restrictions None
Instructions:
Stand-Alone Forms:
Changes to Home Medications: Yes
Discharge Medications:
DC Medications w/original date entered in [facility]
etanercept 50 mg/mL (1 mL) subcutaneous syringe (Enbrel) 50 mg SQ PERKINS 06/28/09
amlodipine 2.5 mg tablet 2.5 mg PO BID 06/29/20
cholecalciferol (vitamin D3) 50 mcg (2,000 unit) tablet 2,000 units PO DAILY 06/29/20
simvastatin 20 mg tablet 20 mg PO QPM 06/29/20
apixaban 5 mg tablet (Eliquis) 5 mg PO BID #60 tabs 03/12/23
metoprolol tartrate 25 mg tablet 12.5 mg PO BID 10/03/24
dofetilide 125 mcg capsule 125 mcg PO Q12H #60 caps 10/06/24
valsartan 160 mg tablet 160 mg PO DAILY #30 tabs 10/06/24
Home Medication Changes
Valsartan reduced to 160 daily.
Tikosyn is new.
Pending Results: No
[2024-10-06 11:53] VITALS: BP 132/50
--- NOTE | 2024-10-06 12:59 | PTCARENOTE ---
IV and tele removed. Discharge instructions reviewed w/ pt and family member. Verbalizes understanding. Belongings collected and sent home w/ pt. Escorted via WC and staff assist. Discharged to home.
--- NOTE | 2024-10-06 13:02 | CM ---
CM following for DC planning needs.
Pt. for DC to home today. Met w/ patient, dtr. at bedside.
Pt. reports that she is feeling well and prepared for DC home.
Provided coupon for Dofetilide thru [employer] in the event that insurance copay is more costly than [employer] coupon.
No further needs identified. Plan is for home, no needs.
== END 2024-10-06 13:00 | disposition home or self-care (01) | DRG 310 ==
LOC: IVU 13:16
PROVIDERS: ADMITTING PHYSICIAN Internal Medicine
DX: I48.0 Paroxysmal atrial fibrillation (principal); I10 Essential (primary) hypertension; I08.3 Combined rheumatic disorders of mitral, aortic and tricuspid valves; E78.5 Hyperlipidemia, unspecified; M06.9 Rheumatoid arthritis, unspecified; L40.50 Arthropathic psoriasis, unspecified
CPT/HCPCS: 80048; 93005

== ENCOUNTER 2025-07-09 10:15 | Outpatient (RCR) | payer OTHER, SELFPAY | END 2025-07-13 23:59 | disposition home or self-care (01) | LOC: RPT 10:15 | PROVIDERS: ATTENDING PHYSICIAN Family Medicine; FAMILY PHYSICIAN Family Medicine | DX: M25.562 Pain in left knee (principal); R26.89 Other abnormalities of gait and mobility; Z73.6 Limitation of activities due to disability; R26.2 Difficulty in walking, not elsewhere classified; M62.81 Muscle weakness (generalized); G89.29 Other chronic pain; L40.50 Arthropathic psoriasis, unspecified; M54.50 Low back pain, unspecified; M54.2 Cervicalgia | CPT/HCPCS: 97110; 97162; 97530 ==

== ENCOUNTER 2025-07-20 09:47 | Day surgery (SDC) | payer OTHER, SELFPAY | END 2025-07-20 11:38 | disposition home or self-care (01) | LOC: CATH 09:47 | PROVIDERS: ATTENDING PHYSICIAN Internal Medicine; FAMILY PHYSICIAN Family Medicine; OTHER PHYSICIAN Internal Medicine | DX: I48.19 Other persistent atrial fibrillation (principal); I10 Essential (primary) hypertension; E78.2 Mixed hyperlipidemia; Z79.01 Long term (current) use of anticoagulants; Z80.0 Family history of malignant neoplasm of digestive organs; M81.0 Age-related osteoporosis without current pathological fracture; I47.10 Supraventricular tachycardia, unspecified; L40.50 Arthropathic psoriasis, unspecified | CPT/HCPCS: 92960; 93005 ==

== ENCOUNTER 2025-07-31 08:56 | Outpatient (RCR) | payer OTHER, SELFPAY | END 2025-08-02 23:59 | disposition home or self-care (01) | LOC: RPT 08:56 | PROVIDERS: ATTENDING PHYSICIAN Family Medicine; FAMILY PHYSICIAN Family Medicine | DX: M25.562 Pain in left knee (principal); R26.89 Other abnormalities of gait and mobility; Z73.6 Limitation of activities due to disability; R26.2 Difficulty in walking, not elsewhere classified; M62.81 Muscle weakness (generalized); G89.29 Other chronic pain; L40.50 Arthropathic psoriasis, unspecified; M54.50 Low back pain, unspecified; M54.2 Cervicalgia | CPT/HCPCS: 97110 ==

== ENCOUNTER 2025-08-06 09:12 | Emergency (ER) | payer OTHER, SELFPAY ==
[2025-08-06] VITALS (7 sets, daily range): BP systolic 134–161; BP diastolic 51–70; BMI 26.1
--- NOTE | 2025-08-06 10:41 | ED.GENMED ---
History of Present Illness
General
Chief Complaint: Heart Rate Problem
Source: patient and other (Son-in-law/physician)
Exam Limitations: none
Time Seen by Provider: 08/06/25 09:22
History of Present Illness
History of Present Illness:
89-year-old with history of PAF. Recent cardioversion. On Tikosyn. Presents with weakness and atrial fibrillation. Lightheadedness. Started 2 to 3 days ago. On Eliquis. Faithful with medications.
Past History
Past History
ED Past Medical History: Arrthythmia (Atrial fibrillation), HTN, Hypercholesterolemia and Other (Psoriatic arthritis, ischemic colitis)
ED Past Surgical History: Other
Social History
Tobacco: Non-smoker
Alcohol: None
Family History
Family History: Negative Diabetes, Hypertension, Early CAD, Asthma or Cancer
Review of Systems
Review of Systems
All Other Systems: Not applicable
Respiratory: Reports no symptoms
Cardiac: Denies chest pain or syncope
Phy Exam
Physical Exam
Physical Exam:
GENERAL: Alert and oriented in no apparent distress
EYE: Orbits normal.
NECK: Supple, no significant adenopathy.
ENT: Pharynx without erythema. Airway clear. No loose dentures or teeth
CARDIAC: Irregular irregular
LUNGS: Clear breath sounds,normal
ABDOMEN: Soft, without focal tenderness or distention
NEUROLOGICAL: Alert and oriented , grossly non-focal
SKIN: Warm and dry, no rash or lesion, no discoloration, skin intact.
MUSCULOSKELETAL: No edema,no deformity.Good color
PSYCH: Normal and appropriate interaction.
Course
Orders/Labs/Results
Orders:
Orders
08/06/25 09:14
ECG [Electrocardiogram (*1)] Urgent
Reason for Study: Abnormal EKG
EKG- Treatment ONCE
08/06/25 09:43
Propofol [Diprivan] 20 ml .ROUTE .STK-MED
08/06/25 09:56
ECG [Electrocardiogram (*1)] Urgent
Reason for Study: Atrial Fibrillation
EKG- Treatment ONCE
08/06/25 10:06
Straight cath- Treatment ONCE
08/06/25 10:15
Urine Culture Urgent
SOURAV Source: Urine
Specimen Description:
Obtained by: Straight Cath
Date Specimen was Collected: 08/06/25
Time Specimen was Collected: 10:07
Vital Signs
Initial and Last Documented VS:
Initial Vital Signs
Temp Pulse Resp BP Pulse Ox
98.1 F 86 16 161/70 97
08/06/25 09:18 08/06/25 09:18 08/06/25 09:18 08/06/25 09:18 08/06/25 09:18
Last Documented Vital Signs
Temp Pulse Resp BP Pulse Ox
98.1 F 57 19 147/68 100
08/06/25 09:18 08/06/25 11:00 08/06/25 11:00 08/06/25 11:00 08/06/25 10:43
Procedures
Moderate Sedation
Moderate Sedation Procedure End Time: 10:05
Cardioversion
Indication:: Afib
Performed by:: Myself
Synchronized?: Yes
Energy Used: 200 joules
Number of attempts: 1
Successful?: Yes
ASA Risk Score: Class III
Any reaction or bad outcome to prior sedation/anesthesia?: No history of a reaction
Sedation level to be attained: moderate
Chart and allergies reviewed: Yes
Patient reassessed prior to sedation: Yes
Time out completed at (validating right patient & procedure): 09:54
History of difficult intubation: No
Airway free of obstruction: Yes
Patient has a gag reflex: Yes
Patient is able to open mouth: Yes
Patient has no dentures: Yes
Patient has no loose teeth: No
Medication administered by Provider during Moderate Sedation: IV Propofol (mg)
Total dose administered: 40
Time drug administered: 09:54
Start Time: 09:54
Stop Time: 10:05
*Pulse Oximetry
SaO2: 100
Oxygen Mode of Delivery: Room air
Patient hypoxic: no (97)
*Critical Care Note
Total Time (30-74mins, 75-104mins- exclusive of procedures): Not Applicable
Update Note
Update Note:
Patient tolerated well. Repeat EKG normal sinus rhythm mildly bradycardic. Some poor R wave progression. No acute changes. We did order a urinalysis at the request of patient's son-in-law who is a physician for recurrent UTI issues. On Cipro
currently. Recent labs were all stable. No indication for lab testing
1100... Doing well. Ready to go home. Has remained stable. Normal sinus rhythm
ED Attending Note
-
Portions of this chart may have been created with voice recognition software.� Occasional wrong word or��sound alike� substitutions may have occurred due to the inherent limitations of voice recognition software.
Discharge Plan
Departure
Patient Disposition: Home (Routine Discharge)
Date of Disposition: 08/06/25
Time of Disposition: 10:58
Patient with high blood pressure during this ER visit?: Yes
Discharge Problem:
Paroxysmal atrial fibrillation, Recurrent UTI
Instructions: Atrial Fibrillation (DC), MODERATE SEDATION ADULT, BLOOD PRESSURE
Prescriptions:
No Action
Enbrel 50 MG/ML syringe
50 mg SQ PERKINS
amlodipine 2.5 MG tablet
2.5 mg PO BID
simvastatin 20 MG tablet
20 mg PO QPM
cholecalciferol (vitamin D3) 2,000 UNITS tablet
2,000 units PO DAILY
Eliquis 5 mg tablet
5 mg PO BID Qty: 60 3RF
metoprolol tartrate 25 mg Tablet
12.5 mg PO BID
dofetilide 125 mcg Capsule
125 mcg PO Q12H Qty: 60 3RF
valsartan 160 mg Tablet
160 mg PO DAILY Qty: 30 0RF
Referrals:
Jerrod Diego MD [Family Provider, [facility]]
Activity Restrictions/Additional Instructions:
Follow-up closely with your image scientist
Interventions
Interventions:
*General Assessment Last Done: 08/06/25 09:39
*Neglect/Abuse Screening Last Done: 08/06/25 09:39
*ED COVID-19 Vaccine History Last Done: 08/06/25 09:39
*ED Influenza Vaccine History Last Done: 08/06/25 09:39
*Risk Screen - Suicide (C-SSRS) Last Done: 08/06/25 09:39
*Nursing Disposition Last Done: 08/06/25 11:18
ED- Cardiac Assessment Last Done: 08/06/25 09:47
ED- Pulmonary Assessment Last Done: 08/06/25 09:47
Discharge Date and Time
Discharge Date/Time: 08/06/25 11:19
Print Language: HAITIAN
== END 2025-08-06 11:19 | disposition home or self-care (01) ==
LOC: EMR 09:12
PROVIDERS: EMERGENCY PHYSICIAN Emergency Medicine; FAMILY PHYSICIAN Family Medicine
DX: I48.0 Paroxysmal atrial fibrillation (principal); N39.0 Urinary tract infection, site not specified; I10 Essential (primary) hypertension; E78.00 Pure hypercholesterolemia, unspecified; L40.50 Arthropathic psoriasis, unspecified; Z79.01 Long term (current) use of anticoagulants; Z87.440 Personal history of urinary (tract) infections
CPT/HCPCS: 99285; 87086; 93005

== ENCOUNTER 2025-08-10 04:25 | Inpatient (IN) | payer OTHER, SELFPAY ==
[2025-08-10] VITALS (14 sets, daily range): BP systolic 124–166; BP diastolic 55–86; BMI 19.5; BMI 25.7
[2025-08-10 01:06] LABS: ALT (SGPT) 32 U/L (0-35); AST (SGOT) 72 U/L (14-36); Albumin 4.6 g/dl (3.5-5.0); Alkaline Phosphatase 84 U/L (38-126); Blood Urea Nitrogen 14 mg/dl (7-17); Calcium 9.0 mg/dl (8.4-10.2); Carbon Dioxide 27 mmol/L (22-30); Chloride 99 mmol/L (98-107); Estimated Creatinine Clearance 46 ml/min; Glucose 170 mg/dl (70-99); Lipase 102 U/L (23-300); Potassium 3.2 mmol/L (3.5-5.1); Sodium 136 mmol/L (135-145); Total Protein 7.5 g/dl (6.3-8.2); eGFR > 60.00
[2025-08-10 01:10] LABS: Hematocrit 35.0 % (37.0-47.0); Hemoglobin 11.6 g/dL (12.0-16.0); Mean Corp Hgb Conc. 33.1 g/dL (33.0-37.0); Mean Corpuscular Volume 88.6 fL (81.0-99.0); Nucleated Red Blood Cells % 0 %; Platelet Count 343 10^3/uL (130-400); Red Cell Dist. Width 12.4 % (11.5-14.5)
--- NOTE | 2025-08-10 01:17 | ED.GENMED ---
History of Present Illness
General
Chief Complaint: Abdominal Symptoms
Time Seen by Provider: 08/10/25 01:06
Nursing documentation reviewed up to this point in time: agreed with
History of Present Illness
History of Present Illness:
89-year-old female presents to the ER via EMS for evaluation of mid back pain which started abruptly around 10:00. Patient reports severe nausea and vomiting associated with it. She denies any recent change in bowel habits. She had roast beef for
dinner around 6 PM. She denies any prior history of similar discomforts. No chest pain. No shortness of breath. No parasthesias to arms or legs. She was given zofran en route to the ED with improvement in symptoms. She reports the pain to be a
2-3/10 at current. She did have an episode of retching while in the ED and was unable to catch her breath with SpO2 to 66 as per family at bedside.
Past History
Past History
ED Past Medical History: Arrthythmia (Atrial fibrillation), HTN, Hypercholesterolemia and Other (Psoriatic arthritis, ischemic colitis)
ED Past Surgical History: Other
Social History
Tobacco: Non-smoker
Alcohol: None
Family History
Family History: Negative Diabetes, Hypertension, Early CAD, Asthma or Cancer
Review of Systems
Review of Systems
Allergies reviewed?: Yes
Phy Exam
Physical Exam
Physical Exam:
Patient is awake, alert, appears in no acute distress, head is NCAT, PERRL, EOMI mucous membranes moist, conjunctiva pink, heart regular rate and rhythm without murmurs or ectopy, lungs are clear to auscultation without wheezes rales or rhonchi, no
pain on palpation of thoracic or lumbar spine, no JVD, abdomen is soft and nontender on palpation, negative bone's extremities without edema, 2+ radial and DP pulses symmetric, GCS is 15
Course
Orders/Labs/Results
Orders:
Orders
08/10/25 00:21
ECG [Electrocardiogram (*1)] Urgent
Reason for Study: Atrial Fibrillation
EKG- Treatment ONCE
08/10/25 00:32
IV Insert/Care/Rem.- Treatment PRN
08/10/25 00:34
Complete Blood Count/With Diff Urgent
Troponin I Urgent
08/10/25 00:35
Comprehensive Metabolic Panel Urgent
Lipase Urgent
08/10/25 01:16
CT Chest/abd/pelvis Angio W/wo Urgent
Comment:
Reason For Exam: back pain, vomiting, r/o dissection
08/10/25 01:17
0.9% Sodium Chloride 500 ml [Nss] 500 ml IV BOLUS
08/10/25 01:34
Morphine Sulfate 4 mg IV NOW STA
Ondansetron Injectable [Zofran] 4 mg IV NOW STA
Potassium Chloride [KCl] 20 meq 0.9% Sodium Chloride 150 ml [Nss] 150 ml IV NOW
Abnormal Lab Results
08/10/25 08/10/25
00:34 00:35
WBC 16.5 H 10^3/uL
(4.8-10.8)
RBC 3.95 L 10^6/uL
(4.20-5.40)
Hgb 11.6 L g/dL
(12.0-16.0)
Hct 35.0 L %
(37.0-47.0)
Abs Immat Gran (auto) 0.1 H 10^3/uL
(0-0.05)
Absolute Neuts (auto) 14.0 H 10^3/uL
(1.4-6.5)
Absolute Monos (auto) 0.9 H 10^3/uL
(0.1-0.6)
Neutrophils % 84.8 H %
(42.2-75.2)
Lymphocytes % 8.5 L %
(20.5-51.1)
Potassium 3.2 L mmol/L
(3.5-5.1)
Glucose 170 H mg/dl
(70-99)
Total Bilirubin 1.6 H mg/dl
(0.2-1.3)
AST 72 H U/L
(14-36)
08/10/25 00:34
08/10/25 00:35
White blood count elevated. Mild anemia noted at 11.6, no indication for transfusion. Mild hypokalemia seen. Kidney function preserved.
Vital Signs
Initial and Last Documented VS:
Initial Vital Signs
Temp Pulse Resp BP Pulse Ox
98 F 78 16 149/69 98
08/10/25 00:23 08/10/25 00:23 08/10/25 00:23 08/10/25 00:23 08/10/25 00:23
Last Documented Vital Signs
Temp Pulse Resp BP Pulse Ox
98 F 79 19 142/69 99
08/10/25 00:23 08/10/25 03:00 08/10/25 03:00 08/10/25 03:00 08/10/25 03:00
MDM/Problems Addressed
Differential Diagnosis Includes:
Differential diagnosis to consider but not limited to aortic dissection, biliary colic, esophageal perforation, ACS, gastroenteritis along with other etiologies considered
Chronic conditions affecting care:
Atrial fibrillation on long-term anticoagulation, frequent UTI, diverticulosis, hypertension, high cholesterol
*Radiology
Radiology exam reviewed: radiology read reviewed (I reviewed CT results showing no acute abnormality within abdomen and pelvis. No AAA or dissection, no bowel obstruction. Cholelithiasis and mild gallbladder distention without wall thickening or
Paramjit cholecystic fluid. CBD is 8 mm)
*Pulse Oximetry
SaO2: 98
Oxygen Mode of Delivery: Room air
Patient hypoxic: no
*EKG
Interpreted by ED Provider?: Yes (I independently viewed and interpreted twelve-lead EKG showing atrial fibrillation, rate 75, normal axis, no ST elevation, this is an abnormal tracing, QT is measured at 498 ms, A-fib has replaced normal sinus
rhythm seen on EKG on 08/06/2025)
*Primary School Teacher Interpretation
Rate: other (I independently viewed and interpreted rhythm strip showing rate controlled atrial fibrillation)
*Critical Care Note
Total Time (30-74mins, 75-104mins- exclusive of procedures): Not Applicable
Update Note
Update Note:
0200: IV potassium repletion ordered. Patient had initially declined need for analgesia or pain reliever, now asking for treatment. Zofran and morphine ordered. Awaiting CT scan for dispo.
0300: Once CT result available, I reviewed this information with patient and multiple family numbers present at bedside. Patient responded well to Zofran and morphine, sleeping without difficulty. I discussed with them most likely etiology
symptoms related to biliary colic. Given her multiple comorbidities including mild hypokalemia, recurrent atrial fibrillation on long-term anticoagulation, advanced age, extensive atherosclerosis and continued pain, they agree with plan for
admission for further evaluation. I reviewed full patient presentation with hospitalist accepts patient for admission.
ED Attending Note
-
Portions of this chart may have been created with voice recognition software.� Occasional wrong word or��sound alike� substitutions may have occurred due to the inherent limitations of voice recognition software.
Discharge Plan
Departure
Patient Disposition: Admit
Date of Disposition: 08/10/25
Time of Disposition: 03:04
Presentation/result/management discussed w/ accepting MD/DO: Hospitalist
Discharge Problem:
Abdominal pain, Cholelithiasis, Vomiting, Atrial fibrillation, Anticoagulant long-term use
Prescriptions:
No Action
Enbrel 50 MG/ML syringe
50 mg SQ PERKINS
amlodipine 2.5 MG tablet
2.5 mg PO BID
simvastatin 20 MG tablet
20 mg PO QPM
cholecalciferol (vitamin D3) 2,000 UNITS tablet
2,000 units PO DAILY
Eliquis 5 mg tablet
5 mg PO BID Qty: 60 3RF
metoprolol tartrate 25 mg Tablet
12.5 mg PO BID
dofetilide 125 mcg Capsule
125 mcg PO Q12H Qty: 60 3RF
valsartan 160 mg Tablet
160 mg PO DAILY Qty: 30 0RF
Referrals:
Jerrod Diego MD [Family Provider, Family Practice]
Interventions
Interventions:
*General Assessment Last Done: 08/10/25 00:23
*Neglect/Abuse Screening Last Done: 08/10/25 00:23
*ED COVID-19 Vaccine History Last Done: 08/10/25 00:23
*ED Influenza Vaccine History Last Done: 08/10/25 00:23
[facility] Fall Risk Assessment Tool Last Done: 08/10/25 00:32
*Risk Screen - Suicide (C-SSRS) Last Done: 08/10/25 00:23
EI-Aenddu-Unhyhvnxfa Assessment Last Done: 08/10/25 00:48
Discharge Date and Time
Print Language: [facility] [place]
[2025-08-10 01:18] LABS: Troponin I < 0.012 ng/ml
[2025-08-10] MEDS: NSS 500 IV (01:23)
[2025-08-10] MEDS: ZOFRAN 4 MG IV (01:38)
[2025-08-10] MEDS: MORPHINE SULFATE 4 MG IV (01:39)
[2025-08-10] MEDS: KCL 160 MEQ IV (02:25)
--- NOTE | 2025-08-10 04:16 | HPS.HSE ---
Family Physician
-
Family Physician: Jerrod Diego
Chief Complaint
-
Back Pain, N/V
History of Present Illness
Patient is an 89y F with PMH significant for paroxysmal A-Fib, hypertension and RA who presents to ED complaining of back pain and N/V. Patient states that she felt very well for much of the day today. She had a rich dinner (roast beef and
chocolate cake) and noted some mild nausea when going to bed this evening. While lying in bed she developed pain in the R posterior shoulder / upper back. She noted some 'tightness' in the chest and then developed N/V. Patient took her vitals at
home and noted that her BP was elevated (190/90) and her pulse was elevated (100-110). She called family for assistance and was brought to the ED for further evaluation.
Patient had additional episodes of emesis in the ambulance. Emesis was describes as mostly food material. No blood. No abdominal pain.
After arrival to the ED, patient states that she feels much improved. She has no residual pain or nausea at the time of my exam.
Patient is noted to be in A-Fib on monitor here in the ED - s/p cardioversion 08/06 here.
Medical History
Past Medical History
Past Medical History: Reports Other
Additional Past Medical History:
Paroxysmal Atrial Fibrillation
Hypertension
Rheumatoid Arthritis / Psoriatic Arthritis
ASCVD / Ischemic Colitis
Breast Cancer
Malignant Melanoma
Past Surgical History: Reports Other
Additional Past Surgical History:
DCCV (07/20 and 08/06)
Cataracts
Right RADHA
Melanoma Excision
Lumpectomy
Social History
Tobacco: Non-smoker
Alcohol: Occasional (Very rare)
Drug: None
Family History
Family History: Not pertinent
Allergies / Home Medications
Allergies reflects when Allergies were last updated in [employer].
Home Medications with original date entered in [employer]
Allergy/Medication List:
Allergies
Allergy/AdvReac Type Severity Reaction Status Date / Time
No Known Allergies Allergy Verified 08/06/25 09:18
Home Medications
etanercept 50 mg/mL (1 mL) subcutaneous syringe (Enbrel) 50 mg SQ PERKINS 06/28/09
amlodipine 2.5 mg tablet 2.5 mg PO BID 06/29/20
cholecalciferol (vitamin D3) 50 mcg (2,000 unit) tablet 2,000 units PO DAILY 06/29/20
simvastatin 20 mg tablet 20 mg PO QPM 06/29/20
apixaban 5 mg tablet (Eliquis) 5 mg PO BID #60 tabs 03/12/23
dofetilide 125 mcg capsule 125 mcg PO Q12H #60 caps 10/06/24
valsartan 160 mg tablet 160 mg PO DAILY #30 tabs 10/06/24
furosemide 20 mg tablet 20 mg PO DAILY PRN swelling 08/10/25
metoprolol succinate 25 mg tablet,extended release 24 hr 25 mg PO DAILY 08/10/25
Review of Systems
-
History Source: Patient
A 12 point ROS was completed and negative except as noted: Yes
Constitutional: Reports Fatigue; Denies Fever or Chills
EENT: Denies Sore Throat
Respiratory: Denies Cough or Trouble Breathing
Cardiac: Reports Chest Pain and Palpitations; Denies Diaphoresis or Syncope
Abdomen/GI: Reports Nausea and Vomiting; Denies Abdominal Pain or Diarrhea
: Denies Dysuria or Frequency
Musculoskeletal: Reports Other (Back pain / shoulder pain); Denies Joint Pain or Edema
Neurological: Denies Dizzy or Headache
Psych: Denies Depression or Anxiety
Physical Exam
Vital Signs
Vital Signs
Temp Pulse Resp BP Pulse Ox
98 F 79 19 142/69 99
08/10/25 00:23 08/10/25 03:00 08/10/25 03:00 08/10/25 03:00 08/10/25 03:00
Physical Exam
General: Other (89y F in no acute distress.)
HEENT: Moist mucous membranes and PERRLA
Respiratory: Other (Few bibasilar rales. No wheezing / rhonchi.)
Cardiac: S1/S2, Irregular Rhythm and Tachycardia; No Murmur
GI: Soft, Non Distended, Normal Bowel Sounds and Other (Mild RUQ tenderness without rebound / guarding. Pos BS.)
Musculoskeletal: No Clubbing, No Cyanosis and No Edema
Neuro: AO x 3
Laboratory Results
-
08/10/25 00:34
08/10/25 00:35
Laboratory Results
Lactic Acid 1.2 mmol/L (0.7-2.0) 08/10/25 03:38
Total Bilirubin 1.6 mg/dl (0.2-1.3) H 08/10/25 00:35
AST 72 U/L (14-36) H 08/10/25 00:35
ALT 32 U/L (0-35) 08/10/25 00:35
Alkaline Phosphatase 84 U/L (38-126) 08/10/25 00:35
Troponin I < 0.012 ng/ml 08/10/25 00:34
Lipase 102 U/L (23-300) 08/10/25 00:35
Impression/Plan
-
A/P: Patient is an 89y F with PMH significant for A-Fib, hypertension and RA who presents to ED complaining of R shoulder pain and N/V.
Cholelithiasis +/- Cholecystitis
- Admit for further evaluation and treatment.
- History seems c/w biliary colic given shoulder discomfort, N/V, preceding meal, etc.
- CT shows gallstones without wall thickening, etc.
- LFTs are not impressive - but are increased from patient's prior baseline.
- Given tenderness on exam, history, leukocytosis, immunocompromised state, etc - will cover with IV Zosyn for now.
- Check Abd US in AM for further evaluation.
- GI consulted for additional recommendations.
- Monitor for any recurrent symptoms.
- NPO for now except sips / chips.
Paroxysmal Atrial Fibrillation
- s/p Cardioversion on 07/20 and again on 08/06.
- Now back in A-Fib with rates around 100 bpm.
- Continue current med regimen with no changes for now.
- Continue Eliquis pending any clear plans for interventions / procedures.
- Cardiology evaluation for additional recommendations / next steps regarding A-Fib.
Hypokalemia
- Received IV replacement in the ED.
- Repeat labs in the AM. Check Mg.
ASCVD
History of Ischemic Colitis
- No abdominal pain with today's episode.
- Lactate = 1.2.
- Areas of stenosis seen on CT (celiac / SMA).
- Monitor for any new symptoms. Avoid hypovolemia / hypotension.
Benign Hypertension
- Stable. Continue home regimen with holding parameters.
Rheumatoid / Psoriatic Arthritis
- Chronically on Enbrel - last dose of Wednesday.
- Hold acutely.
DVT Prophylaxis: On Eliquis
Code Status: DNR
--- NOTE | 2025-08-10 05:30 | PTCARENOTE ---
Pt arrived to 2S from ED @ 0530. Pt ambulated to the bed with an assist of 1 and RW. Pt A&Ox3, VSS. Admission assessment complete. IVF initiated per order. Pt oriented to room, call mackey within reach, bed locked in lowest position, care ongoing.
[2025-08-10] MEDS: LR 1000 IV ×2 (06:22→22:53)
[2025-08-10] MEDS: ZOSYN 50 IV ×4 (06:23→23:30)
[2025-08-10] MEDS: TIKOSYN 125 MCG PO ×2 (06:34→17:47)
--- NOTE | 2025-08-10 07:45 | W.PN.HOSP.TC ---
Today's Communication/Plan
-
Hold Eliquis.
Continue IV Zosyn.
Pain and nausea control.
Clear liquid diet
Assessment / Plan
Assessment / Plan
Impression:
Patient is a pleasant 89y F with PMH significant for paroxysmal A-Fib, hypertension and RA who presents to ED complaining of back pain and N/V. Patient states that she felt very well for much of the day today. She had a rich dinner (roast beef
and chocolate cake) and noted some mild nausea when going to bed this evening. While lying in bed she developed pain in the R posterior shoulder / upper back. She noted some 'tightness' in the chest and then developed N/V. Patient took her vitals
at home and noted that her BP was elevated (190/90) and her pulse was elevated (100-110). She called family for assistance and was brought to the ED for further evaluation.
Patient had additional episodes of emesis in the ambulance. Emesis was describes as mostly food material. No blood. No abdominal pain.
After arrival to the ED, patient states that she feels much improved. She has no residual pain or nausea at the time of my exam.
Patient is noted to be in A-Fib on monitor here in the ED - s/p cardioversion 08/06 here.
Patient admitted on the hospital service, kept n.p.o., started on IV Zosyn, GI consulted, cardiology consulted, ultrasound abdomen ordered
Converted to sinus rhythm, ultrasound done showed Gallstones with pericholecystic fluid and extrahepatic biliary dilatation concerning for acute cholecystitis. Clinical and laboratory correlation recommended. Surgery team consulted.
Assessment/plan:
Cholelithiasis �Acute Cholecystitis
Admitted to telemetry floor for further evaluation and treatment.
Abdominal pain most likely consistent with biliary colic (shoulder discomfort, N/V, postprandial onset).
CT: gallstones without wall thickening.
LFTs mildly elevated compared to baseline.
Given tenderness, leukocytosis, patient was started on IV Zosyn. (WBCs improved)
Abdomen ultrasound pending.
GI consulted for recommendations.
If confirmed acute cholecystitis will obtain surgery consult.
Monitor for recurrent symptoms.
Ultrasound done showed Gallstones with pericholecystic fluid and extrahepatic biliary dilatation concerning for acute cholecystitis. Clinical and laboratory correlation recommended. Surgery team consulted.
Clear liquid diet for now, need 48 hours washout for Eliquis.
Paroxysmal Atrial Fibrillation
s/p Cardioversion on 07/20 and 08/06.
Currently in A-Fib, initial HR ~100 bpm, now heart rate better controlled--> now sinus rhythm
Continue current regimen (including dofetilide,Toprol-XL Eliquis).
Cardiology consulted.
Hypokalemia
IV replacement given in ED.
Continue to monitor
History of Ischemic Colitis
No abdominal pain currently.
Lactate 1.2.
CT shows celiac/SMA stenosis.
Monitor for symptoms; avoid hypovolemia/hypotension.
Benign Hypertension
Stable; continue home regimen with holding parameters.
Rheumatoid / Psoriatic Arthritis
On Enbrel chronically; last dose Wednesday.
Hold for now.
CODE STATUS: DNR
DVT prophylaxis: Hold Eliquis
Diet: Clear liquid diet
Family communication: Discussed with family at bedside
Disposition: Hold Eliquis.
Continue IV Zosyn.
Pain and nausea control.
Clear liquid diet
Total time spent on today's encounter was 55 minutes which included time spent in counseling the patient/family regarding diagnosis and treatment plan as listed above, goals of care, and symptom management. Case was discussed with nursing staff,
specialists, and care coordinators/case management. All labs and imaging personally reviewed by me. Remainder the time spent in detailed review of previous records, lab data, imaging, and other medical provider documentation.
Part of this note was created using voice recognition system. Occasional wrong word or �sound alike� substitutions may have inadvertently occurred due to the inherent limitations of voice recognition software. If noted kindly bring it to my
attention for correction.
Anticipated Discharge: > 48 hours
Subjective/Interval History
-
Date of Service: August 10, 2025
Patient seen and examined at bedside, denies any chest pain or shortness of breath, improved abdominal pain, mild nausea, no vomiting, no diarrhea or constipation.
Objective Data
-
Labs:
Laboratory Results
08/10/25 08/10/25 08/10/25
00:34 00:35 07:24
WBC 16.5 H Pending
Hgb 11.6 L Pending
Hct 35.0 L Pending
Plt Count 343 Pending
Sodium 136 Pending
Potassium 3.2 L Pending
Chloride 99 Pending
Carbon Dioxide 27 Pending
BUN 14 Pending
Creatinine 0.7 Pending
Glucose 170 H Pending
Calcium 9.0 Pending
Total Bilirubin 1.6 H Pending
AST 72 H Pending
ALT 32 Pending
Alkaline Phosphatase 84 Pending
Vital Signs:
Vital Signs
Temp Pulse Resp BP Pulse Ox
98.0 F 73 16 146/63 98
08/10/25 05:59 08/10/25 05:59 08/10/25 05:59 08/10/25 05:59 08/10/25 05:59
I&O
08/09/25 08/10/25 08/11/25
06:59 06:59 06:59
Intake Total 250 / 250
Balance 250 / 250
Physical Exam
-
General: Well Developed, Well Nourished, No Apparent Distress and Comfortable
HEENT: Normocephalic, Atraumatic, Moist Mucous Membranes, No Ptosis, PERRLA and Nose Appears Normal
Respiratory: Clear to Auscultation and Non Labored Respirations
Cardiac: Regular Rhythm and S1/S2
Breast: Deferred by me
GI: Soft, Nontender, Nondistended and Normal Bowel Sounds
Genito-urinary: No Costovertebral Tender
Musculoskeletal: No Clubbing, No Cyanosis and No Edema
Skin: Warm
Neuro: Awake, Alert, Oriented, AO x 3 and No Motor Deficits
Psych: Calm
Data Reviewed
-
Diagnostic Radiology: Image personally visualized and interpreted and Report Reviewed by me
CT Scan: Image personally visualized and interpreted and Report Reviewed by me
Ultrasound: Image personally visualized and interpreted and Report Reviewed by me
MRI: Image personally visualized and interpreted and Report Reviewed by me
Medical Tests (Nuc Med, Echo etc): Image personally visualized and interpreted and Report Reviewed by me
Labs: Labs Reviewed by me
Old Records: Reviewed
[2025-08-10 07:48] LABS: Hematocrit 33.6 % (37.0-47.0); Hemoglobin 11.2 g/dL (12.0-16.0); Mean Corp Hgb Conc. 33.3 g/dL (33.0-37.0); Mean Corpuscular Volume 89.1 fL (81.0-99.0); Platelet Count 310 10^3/uL (130-400); Red Cell Dist. Width 12.5 % (11.5-14.5)
[2025-08-10 08:42] LABS: ALT (SGPT) 167 U/L (0-35); AST (SGOT) 311 U/L (14-36); Albumin 4.1 g/dl (3.5-5.0); Alkaline Phosphatase 70 U/L (38-126); Blood Urea Nitrogen 11 mg/dl (7-17); Calcium 9.0 mg/dl (8.4-10.2); Carbon Dioxide 27 mmol/L (22-30); Chloride 102 mmol/L (98-107); Estimated Creatinine Clearance 48 ml/min; Glucose 149 mg/dl (70-99); Magnesium 1.9 mg/dl (1.6-2.3); Potassium 4.9 mmol/L (3.5-5.1); Sodium 135 mmol/L (135-145); Total Protein 6.8 g/dl (6.3-8.2); eGFR > 60.00
[2025-08-10] MEDS: PROTONIX 40 MG PO (09:10)
[2025-08-10] MEDS: TOPROL XL 25 MG PO (09:10)
[2025-08-10] MEDS: DIOVAN 160 MG PO (09:10)
--- NOTE | 2025-08-10 10:44 | CON.CAR ---
Addendum entered and electronically signed by Ryan Triana MD 08/10/25 14:48:
I reviewed and agree with the note by TRAVIS Avery and it accurately reflects our care.
I saw and evaluated the patient, and I provided the substantive portion of the medical decision making. My assessment and plan is below:
89-year-old female with paroxysmal atrial fibrillation on Tikosyn and Eliquis and 2 recent cardioversions (07/20 and 08/07) who presents with nausea, vomiting, and abdominal pain found to have cholecystitis. Cardiology is consulted for preoperative
risk stratification and management of A-fib. On initial presentation she was found to be in rate controlled atrial fibrillation but spontaneously converted on her own. She is asymptomatic from a cardiovascular standpoint. Abdominal pain has
improved. She and family would like to go forward with surgery this admission.
Physical exam: RRR, no murmurs, clear lungs, no lower extremity edema
ECG 08/10: Atrial fibrillation, HR 75 bpm, nonspecific ST�T wave abnormality
TTE June 2024: LVEF 55-60%, normal RV, mild/mod MR, mild/mod AR, mod TR, PASP 53 mmHg
Acute cholecystitis: Plan is for cholecystectomy after washout of apixaban (last dose 08/09 PM). We will bridge with heparin given recent cardioversion. Fortunately she has no signs/symptoms of decompensated heart failure, unstable angina, or
unstable arrhythmias that would preclude surgery. She is able to complete 4 METS of activity without difficulty. She is at acceptable risk for surgery without any further cardiovascular testing.
Paroxysmal atrial fibrillation: She was in rate controlled atrial fibrillation on admission. Spontaneously back to NSR. Anticoagulation plan as above. Continue dofetilide and metoprolol.
Original Note:
Consultation
Consultation Request
Date/Time Consultation Requested: 08/10/25 3013
Date/Time Consultation Performed: 08/10/25 1044
Requesting Provider: Dr. Aguilera
Performing Provider: Mary ROBLES for Dr. Triana
Reason for Consultation: AFIB
Medical History
-
Chief Complaint: Back pain, nausea, vomiting
History of Present Illness:
89 y/o female (patient of Dr. Oliva) with PAF on dofetilide and Eliquis, labile hypertension, mild to moderate AR/MR, moderate TR, HLD, psoriatic arthritis. She was recently seen in our office 07/16/25 with persistent AFIB (symptomatic with MEEKS
and decreased mental sharpness per OP chart). CV was arranged and performed successfully on 07/20/25. She came back to the ER 08/06/25 with light-headedness and was seen to be in AFIB and cardioverted. She is hospitalized now after presenting with
abdominal/back pain, nausea, and vomiting which started around 9 PM last night and she is seen to have acute cholecystitis. We are consulted for recurrent AFIB. At the time of my assessment, she is back in SR (since around 5 AM). She has some
abdominal pain, but no back pain and appears comfortable. Family at bedside.
Past Medical History
Past Medical History: Arrhythmias, HTN, Hypercholesterolemia and Valvular Disease (as above)
Social History
Tobacco: Non-Smoker
Family History
Family History: Reviewed & Not Pertinent
Allergies / Home Medications
Allergy/AdvReac Type Severity Reaction Status Date / Time
No Known Allergies Allergy Verified 08/06/25 09:18
�Medication �Instructions �Recorded �Confirmed �Type
etanercept 50 mg/mL (1 mL) 50 mg SQ PERKINS 06/28/09 08/10/25 History
subcutaneous syringe (Enbrel)
amlodipine 2.5 mg tablet 2.5 mg PO BID 06/29/20 08/10/25 History
cholecalciferol (vitamin D3) 50 2,000 units PO DAILY 06/29/20 08/10/25 History
mcg (2,000 unit) tablet
simvastatin 20 mg tablet 20 mg PO QPM 06/29/20 08/10/25 History
apixaban 5 mg tablet (Eliquis) 5 mg PO BID #60 tabs 03/12/23 08/10/25 Rx
dofetilide 125 mcg capsule 125 mcg PO Q12H #60 caps 10/06/24 08/10/25 Rx
valsartan 160 mg tablet 160 mg PO DAILY #30 tabs 10/06/24 08/10/25 Rx
furosemide 20 mg tablet 20 mg PO DAILY PRN swelling 08/10/25 08/10/25 History
metoprolol succinate 25 mg 25 mg PO DAILY 08/10/25 08/10/25 History
tablet,extended release 24 hr
Review of Systems
-
History Source: Patient
All other systems: Negative unless noted
Abdomen/GI: Abdominal Pain, Nausea and Vomiting
Musculoskeletal: Other (back pain)
Physical Exam
Vital Signs
Temp Pulse Resp BP Pulse Ox
97.8 F 70 18 146/65 96
08/10/25 08:09 08/10/25 09:10 08/10/25 08:09 08/10/25 09:10 08/10/25 08:09
Lab Results
08/10/25 07:24
08/10/25 07:24
Troponin I < 0.012 ng/ml 08/10/25 00:34
Physical Exam
General: Well Developed, Well Nourished and No Apparent Distress
HEENT: Normocephalic and Anicteric
Respiratory: Clear and Non Labored Respirations
Cardiac: Regular Rhythm and Murmur (II/ systolic murmur)
Musculoskeletal: No Edema
Skin: Warm and Dry
Neuro: AO x 3
Psych: Calm
Impression / Plan
-
Acute Cholecystitis:
-GI and surgery teams are consulted, likely plan for cholecystectomy
-on abx
PAF:
-was in afib on arrival, now in SR since around 5 AM. HR was controlled in AFIB.
-importantly, she was cardioverted on 07/20/25 and 08/06/25. Eliquis held for cholecystectomy. Would start IV heparin tonight- this requires intensive monitoring.
-continue dofetilide and metoprolol and follow telemetry
HTN:
-continue CCB, BB, and ARB
-monitor BP's
Valvular heart disease:
-Echo 07/01/24: Normal left ventricular size, wall thickness and systolic function. LV ejection fraction is 55-60% by Lord's method of discs. Normal right ventricular size and function. Mild to moderate mitral regurgitation. Mild to moderate
aortic regurgitation. Moderate tricuspid regurgitation. Estimated pulmonary artery pressure of 53 mmHg. Assuming a right atrial pressure of 3 mmHg.
-volume seems stable; monitor
Data Reviewed
-
EKG: Tracing Personally Visualized and interpreted (AFIB 75 BPM)
Ultrasound: Report Reviewed by me (Gallstones with pericholecystic fluid and extrahepatic biliary dilatation concerning for acute cholecystitis. )
Medical Tests (Nuc Med, Echo etc): Report Reviewed by me (echo as noted)
Labs: Labs Reviewed by me
--- NOTE | 2025-08-10 12:38 | CON.GS ---
Consultation
-
Date/Time Consultation Performed: 08/10/25 1000
Medical History
-
Chief Complaint: RUQ pain
History of Present Illness:
Ms Eason is an 89 yo female with a h/o AFib (on Eliquis with LD 08/10 pm) s/p CV in EP lab on 07/20 with subsequent CV in the ED on 08/06 as she reverted back into AFib, HTN, ischemic colitis management nonoperatively, recent UTI (completed abx on
08/04) and breast CA who presented through the ED last night with sharp pain to the RUQ and epigastrium that developed around 8:30pm radiating to her back with associated nausea and vomiting. She notes that this morning, she feels much better and
her symptoms have resolved. She has minimal tenderness to the RUQ on exam. She denies fevers or chills. She denies bowel or bladder changes.
Past Medical History
Past Medical History: Arrhythmias (PAF s/p CV on 07/20 and 08/06/25), Cancer (breast ca, malignant melanoma), HTN and Other (RA/Psoriatic arthritis, ischemic colitis)
Past Surgical History: Orthopedic (right RADHA) and Other (lumpectomy, excision of melanoma )
Social History
Tobacco: Non-Smoker
Alcohol: Other (rare)
Living: Alone
Family History
Family History: Reviewed & Not Pertinent
Allergies / Home Medications
Allergy/AdvReac Type Severity Reaction Status Date / Time
No Known Allergies Allergy Verified 08/06/25 09:18
�Medication �Instructions �Recorded �Confirmed �Type
etanercept 50 mg/mL (1 mL) 50 mg SQ PERKINS 06/28/09 08/10/25 History
subcutaneous syringe (Enbrel)
amlodipine 2.5 mg tablet 2.5 mg PO BID 06/29/20 08/10/25 History
cholecalciferol (vitamin D3) 50 2,000 units PO DAILY 06/29/20 08/10/25 History
mcg (2,000 unit) tablet
simvastatin 20 mg tablet 20 mg PO QPM 06/29/20 08/10/25 History
apixaban 5 mg tablet (Eliquis) 5 mg PO BID #60 tabs 03/12/23 08/10/25 Rx
dofetilide 125 mcg capsule 125 mcg PO Q12H #60 caps 10/06/24 08/10/25 Rx
valsartan 160 mg tablet 160 mg PO DAILY #30 tabs 10/06/24 08/10/25 Rx
furosemide 20 mg tablet 20 mg PO DAILY PRN swelling 08/10/25 08/10/25 History
metoprolol succinate 25 mg 25 mg PO DAILY 08/10/25 08/10/25 History
tablet,extended release 24 hr
Review of Systems
-
History Source: Patient and Family
All other systems: Negative unless noted
A 10 point review of systems was completed, and was negative except as per HPI.
Physical Exam
Vital Signs
Temp Pulse Resp BP Pulse Ox
97.9 F 66 18 158/65 94
08/10/25 11:19 08/10/25 11:19 08/10/25 11:19 08/10/25 11:19 08/10/25 11:19
08/09/25 08/10/25 08/11/25
06:59 06:59 06:59
Actual Weight 67.755 kg
Body Mass Index (BMI) 25.7
Lab Results
08/10/25 07:24
08/10/25 07:24
WBC 9.7 10^3/uL (4.8-10.8) 08/10/25 07:24
Hgb 11.2 g/dL (12.0-16.0) L 08/10/25 07:24
Hct 33.6 % (37.0-47.0) L 08/10/25 07:24
Plt Count 310 10^3/uL (130-400) 08/10/25 07:24
Abs Immat Gran (auto) 0.1 10^3/uL (0-0.05) H 08/10/25 00:34
Neutrophils % 84.8 % (42.2-75.2) H 08/10/25 00:34
Physical Exam
General: Well Developed and Well Nourished
HEENT: Normocephalic and Moist Mucous Membranes
Respiratory: Non Labored Respirations
GI: Soft, Non Distended and Tender (minimal to RUQ)
Skin: Warm and Dry
Neuro: Awake, Alert and AO x 3
Psych: Calm
Data Reviewed
-
CT Scan: Image Personally Visualized and interpreted, Report Reviewed by me, Discussed with Physician, Discussed with Nurse, Discussed with Patient and Discussed with Family
Labs: Labs Reviewed by me, Discussed with Physician, Discussed with Nurse, Discussed with Patient and Discussed with Family
Assessment / Plan
-
Ms Eason is an 89 yo female with a h/o AFib (on Eliquis with LD 08/10 pm) s/p CV in EP lab on 07/20 with subsequent CV in the ED on 08/06 as she reverted back into AFib and recent UTI (completed abx on 08/04) who presented through the ED last night
with sharp pain to the RUQ and epigastrium that developed around 8:30pm radiating to her back with associated nausea and vomiting. She notes that this morning, she feels much better and her symptoms have resolved. She has minimal tenderness to the
RUQ on exam. AFVSS.
CT imaging with mildly distended gallbladder with cholelithiasis noted with f/u US demonstrating some distention without wall thickening. Some minimal pericholecystic fluid and extrahepatic biliary dilatation noted with CBD measuring 11mm. [place]'s
is not commented on. AFVSS. Leukocytosis present with WBC to 16.5 on admission with WBC normalized today to 9.7. Mild elevation of bilirubin to 1.6 (1.5), direct bilirubin normal. Mild transaminitis.
Suspect biliary colic vs less likely cholecystitis. Discussed surgical intervention with pt and her family. Will start on liquid diet and ADAT, if tolerating PO intake may be able to avoid urgent surgical intervention. Discussed interim
cholecystectomy as an outpatient vs cholecystectomy this admission pending PO tolerance, pt progress and pt/family wishes.
Plan:
Ok for clears
Cardiology evaluation pending for risk stratification
Hold PO anticoagulation (ok for IV/SQ AC if deemed necessary from cardiac standpoint)
Would need Eliquis washout for minimum of 48hours prior to surgical intervention
Continue IV ABX
Medical management as per primary team, d/w hospitalist
--- NOTE | 2025-08-10 13:13 | CON.GI ---
Consultation
-
Date/Time Consultation Requested: 08/10/2025
Date/Time Consultation Performed: 08/10/2025
Requesting Provider: Hospitalist
Performing Provider: Roque HOLCOMB
Reason for Consultation: Nausea/vomiting/back pain
Medical History
Chief Complaint / HPI
Chief Complaint: Back pain/ nausea/ vomiting
History of Present Illness:
89-year-old female with below mentioned past medical history admitted with abd pain/ back pain/nausea/vomiting. Patient ate roast beef for dinner followed by some test that and noted to have some nausea before going to bed yesterday. While lying
down she started developing RUQ pain / upper back/shoulder pain associated with nausea/bilious vomiting -few times prior to admission. Symptomatic improvement after she came to ED last night previous history of ischemic colitis in the past.. Last
episode few years back. Bowel movements were normal. Denies any hematochezia or diarrhea.
History of A-fib s/p cardioversion x2 this month.
Past Medical History
Past Medical History: Other (Paroxysmal Atrial Fibrillation Hypertension Rheumatoid Arthritis / Psoriatic Arthritis ASCVD / Ischemic Colitis Breast Cancer Malignant Melanoma)
Past Surgical History: Other (DCCV (07/20 and 08/06) Cataracts Right RADHA Melanoma Excision Lumpectomy)
Social History
Tobacco: Non-Smoker
Alcohol: Occasional
Drug: None
Allergies / Home Medications
Allergy/AdvReac Type Severity Reaction Status Date / Time
No Known Allergies Allergy Verified 08/06/25 09:18
�Medication �Instructions �Recorded
etanercept 50 mg/mL (1 mL) 50 mg SQ PERKINS 06/28/09
subcutaneous syringe (Enbrel)
amlodipine 2.5 mg tablet 2.5 mg PO BID 06/29/20
cholecalciferol (vitamin D3) 50 2,000 units PO DAILY 06/29/20
mcg (2,000 unit) tablet
simvastatin 20 mg tablet 20 mg PO QPM 06/29/20
apixaban 5 mg tablet (Eliquis) 5 mg PO BID #60 tabs 03/12/23
dofetilide 125 mcg capsule 125 mcg PO Q12H #60 caps 10/06/24
valsartan 160 mg tablet 160 mg PO DAILY #30 tabs 10/06/24
furosemide 20 mg tablet 20 mg PO DAILY PRN swelling 08/10/25
metoprolol succinate 25 mg 25 mg PO DAILY 08/10/25
tablet,extended release 24 hr
Review of Systems
Vital Signs
Temp Pulse Resp BP Pulse Ox
97.9 F 66 18 158/65 94
08/10/25 11:19 08/10/25 11:19 08/10/25 11:19 08/10/25 11:19 08/10/25 11:19
Physical Exam
Exam
General: No Apparent Distress
Respiratory: Clear
Cardiac: S1/S2
GI: Soft, Non Tender and Non Distended
Neuro: AO x 3
Results
WBC 9.7 10^3/uL (4.8-10.8) 08/10/25 07:24
Hgb 11.2 g/dL (12.0-16.0) L 08/10/25 07:24
Hct 33.6 % (37.0-47.0) L 08/10/25 07:24
MCV 89.1 fL (81.0-99.0) 08/10/25 07:24
Plt Count 310 10^3/uL (130-400) 08/10/25 07:24
Absolute Neuts (auto) 14.0 10^3/uL (1.4-6.5) H 08/10/25 00:34
Sodium 135 mmol/L (135-145) 08/10/25 07:24
Potassium 4.9 mmol/L (3.5-5.1) D 08/10/25 07:24
Chloride 102 mmol/L (98-107) 08/10/25 07:24
Carbon Dioxide 27 mmol/L (22-30) 08/10/25 07:24
BUN 11 mg/dl (7-17) 08/10/25 07:24
Creatinine 0.7 mg/dL (0.6-1.0) 08/10/25 07:24
Calcium 9.0 mg/dl (8.4-10.2) 08/10/25 07:24
Total Bilirubin 1.5 mg/dl (0.2-1.3) H 08/10/25 07:24
AST 311 U/L (14-36) H 08/10/25 07:24
ALT 167 U/L (0-35) H 08/10/25 07:24
Alkaline Phosphatase 70 U/L (38-126) 08/10/25 07:24
Lipase 102 U/L (23-300) 08/10/25 00:35
Diagnostic Image Results:
CT chest/abd CTA 08/10/2025
IMPRESSION: No acute disease of the chest, abdomen and pelvis. No evidence of aortic dissection.
Severe atherosclerotic vascular disease. Stable
Mild gallbladder distention and several small gallstones. Acute cholecystitis cannot be excluded. See follow-up abdominal ultrasound report. Distention increased. Stones stable.
Diverticulosis. Stable
Moderate fecal material throughout the colon. Increased
US abd 08/10
IMPRESSION: Gallstones with pericholecystic fluid and extrahepatic biliary dilatation concerning for acute cholecystitis. Clinical and laboratory correlation recommended.
Prior GI Procedures:
EGD: unable to recall
Colonoscopy: unable to recall .
Assessment / Plan
-
89-year-old female with history of A-fib on Eliquis, hypertension, RA , prior episode of ischemic colitis admitted to ED after eating Demarco dinner with back pain/nausea/vomiting. On admission there was leukocytosis�16.5. Repeat labs this a.m.
WBC was normal. Labs this a.m. AST 311/ALT 167. Alkaline phosphatase normal. Total bilirubin 1.5. Direct bilirubin 0.4. Lipase 102
-- Right upper quadrant abdominal pain with radiation to back/nausea/vomiting -suspicious for biliary colic. Ultrasound abdomen with gallstone with cholecystic fluid and extrahepatic biliary dilatation concerning for acute cholecystitis
plan
Follow-up general surgery recommendation
Diet per general surgery
IV antibiotics was initiated by medical team
Continue hold Eliquis
AM labs Alkaline phosphatase is normal. Predominantly indirect bilirubin. If bilirubin continues to be elevated we will recommend MRCP vs IOC if plans for cholecystectomy.
Total Time Spent with Patient (in minutes): 55
-
-
Thank you for consultation and allowing me to participate in the patient's care. Please call the [facility] physician during the after hours with any questions or concerns.
[2025-08-10 14:28] LABS: Hematocrit 32.4 % (37.0-47.0); Hemoglobin 10.6 g/dL (12.0-16.0); Mean Corp Hgb Conc. 32.7 g/dL (33.0-37.0); Mean Corpuscular Volume 88.0 fL (81.0-99.0); Platelet Count 304 10^3/uL (130-400); Red Cell Dist. Width 12.6 % (11.5-14.5)
[2025-08-10 14:44] LABS: APTT 32.4 Sec (23.4-35.0)
[2025-08-10] MEDS: HEPARIN 4000 UNITS IV (15:24)
[2025-08-10] MEDS: HEPARIN 25000 UNITS/250 ML IV (15:25)
[2025-08-10] MEDS: LIPITOR 10 MG PO (17:47)
[2025-08-10 23:49] LABS: APTT 102.9 Sec (23.4-35.0)
[2025-08-11 03:12] VITALS: BP 147/63
[2025-08-11] MEDS: TIKOSYN 125 MCG PO ×2 (05:20→17:33)
[2025-08-11] MEDS: ZOSYN 50 IV ×3 (05:20→17:33)
[2025-08-11 06:00] VITALS: BMI 26.3
[2025-08-11 06:21] LABS: APTT 81.6 Sec (23.4-35.0)
[2025-08-11 06:50] LABS: ALT (SGPT) 166 U/L (0-35); AST (SGOT) 120 U/L (14-36); Albumin 3.6 g/dl (3.5-5.0); Alkaline Phosphatase 70 U/L (38-126); Blood Urea Nitrogen 10 mg/dl (7-17); Calcium 8.4 mg/dl (8.4-10.2); Carbon Dioxide 24 mmol/L (22-30); Chloride 101 mmol/L (98-107); Estimated Creatinine Clearance 34 ml/min; Glucose 93 mg/dl (70-99); Potassium 3.8 mmol/L (3.5-5.1); Sodium 132 mmol/L (135-145); Total Protein 6.2 g/dl (6.3-8.2); eGFR 54.19
[2025-08-11 07:35] VITALS: BP 146/61
[2025-08-11] MEDS: TOPROL XL 25 MG PO (08:50)
[2025-08-11] MEDS: PROTONIX 40 MG PO (08:50)
[2025-08-11] MEDS: DIOVAN 160 MG PO (08:50)
--- NOTE | 2025-08-11 11:25 | W.PN.GS2 ---
Today's Communication / Plan
-
MRI
Assessment / Plan
-
Ms Eason is an 89 yo female with a h/o AFib (on Eliquis with LD 08/10 pm) s/p CV in EP lab on 07/20 with subsequent CV in the ED on 08/06 as she reverted back into AFib and recent UTI (completed abx on 08/04) who presented through the ED last night
with sharp pain to the RUQ and epigastrium now resolved.
CT imaging with mildly distended gallbladder with cholelithiasis noted with f/u US demonstrating some distention without wall thickening. Some minimal pericholecystic fluid and extrahepatic biliary dilatation noted with CBD measuring 11mm. Okeefe's
is not commented on. ?biliary colic vs possible choledocholithiasis, less likely ACC
AFVSS
Mild leukocytosis
Bilirubin slowly rising, mild transaminitis present
Pain resolved
Plan:
Appreciate GI recs, will check MRI imaging
Ok for clears
Cardiology following, on heparin bridge while eliquis on hold
C/W IV abx
Anticipate cholecystectomy later this admission s/p Eliquis washout, timing tbd pending MRI findings
Subjective Data
-
Date of Service: August 11, 2025
Pt seen and examined at bedside with Dr. Retana. Denies pain. Denies n/v. Tolerating diet.
Objective Data
-
Intake and Output
08/10/25 08/11/25 08/12/25
06:59 06:59 06:59
Intake Total 250 / 250 3080 / 3080
Balance 250 / 250 3080 / 3080
Intake:
Oral fluids 120 / 120 960 / 960
IV fluids (Total) 80 / 80 1920 / 192
IV piggybacks 50 / 50 200 / 200
Other:
Number of approximated MODERATE 2
amounts of urine
Number of approximated LARGE 2
amounts of urine
Vital Signs
Temp Pulse Resp BP Pulse Ox
98.5 F 71 16 146/61 95
08/11/25 07:35 08/11/25 08:50 08/11/25 07:35 08/11/25 08:50 08/11/25 07:35
Lab Results
08/10/25 14:17
08/11/25 05:50
Calcium 8.4 mg/dl (8.4-10.2) 08/11/25 05:50
Magnesium 1.9 mg/dl (1.6-2.3) 08/10/25 07:24
Total Bilirubin 2.1 mg/dl (0.2-1.3) H 08/11/25 05:50
Direct Bilirubin 0.4 mg/dl (0.0-0.4) 08/10/25 07:24
AST 120 U/L (14-36) H 08/11/25 05:50
ALT 166 U/L (0-35) H 08/11/25 05:50
Alkaline Phosphatase 70 U/L (38-126) 08/11/25 05:50
Total Protein 6.2 g/dl (6.3-8.2) L 08/11/25 05:50
Albumin 3.6 g/dl (3.5-5.0) 08/11/25 05:50
Physical Exam
-
NAD
ABD soft, nt, nd
--- NOTE | 2025-08-11 11:26 | W.PN.HOSP.TC ---
Today's Communication/Plan
-
Hold Eliquis. Needs 48 hours of washout
Continue IV Zosyn.
MRCP ordered
Assessment / Plan
Assessment / Plan
Impression:
Patient is a pleasant 89y F with PMH significant for paroxysmal A-Fib, hypertension and RA who presents to ED complaining of back pain and N/V. Patient states that she felt very well for much of the day today. She had a rich dinner (roast beef
and chocolate cake) and noted some mild nausea when going to bed this evening. While lying in bed she developed pain in the R posterior shoulder / upper back. She noted some 'tightness' in the chest and then developed N/V. Patient took her vitals
at home and noted that her BP was elevated (190/90) and her pulse was elevated (100-110). She called family for assistance and was brought to the ED for further evaluation.
Patient had additional episodes of emesis in the ambulance. Emesis was describes as mostly food material. No blood. No abdominal pain.
After arrival to the ED, patient states that she feels much improved. She has no residual pain or nausea at the time of my exam.
Patient is noted to be in A-Fib on monitor here in the ED - s/p cardioversion 08/06 here.
Patient admitted on the hospital service, kept n.p.o., started on IV Zosyn, GI consulted, cardiology consulted, ultrasound abdomen ordered
Converted to sinus rhythm, ultrasound done showed Gallstones with pericholecystic fluid and extrahepatic biliary dilatation concerning for acute cholecystitis. Clinical and laboratory correlation recommended. Surgery team consulted.
MRCP ordered
Assessment/plan:
Cholelithiasis �Acute Cholecystitis
Admitted to telemetry floor for further evaluation and treatment.
Abdominal pain most likely consistent with biliary colic (shoulder discomfort, N/V, postprandial onset).
CT: gallstones without wall thickening.
LFTs mildly elevated compared to baseline.
Given tenderness, leukocytosis, patient was started on IV Zosyn. (WBCs improved)
Abdomen ultrasound pending.
GI consulted for recommendations.
If confirmed acute cholecystitis will obtain surgery consult.
Monitor for recurrent symptoms.
Ultrasound done showed Gallstones with pericholecystic fluid and extrahepatic biliary dilatation concerning for acute cholecystitis. Clinical and laboratory correlation recommended. Surgery team consulted.
Clear liquid diet for now, need 48 hours washout for Eliquis.
MRCP ordered
Paroxysmal Atrial Fibrillation
s/p Cardioversion on 07/20 and 08/06.
Currently in A-Fib, initial HR ~100 bpm, now heart rate better controlled--> now sinus rhythm
Continue current regimen (including dofetilide,Toprol-XL, held Eliquis).
Cardiology consulted.
Started on heparin drip bridge
Hypokalemia
IV replacement given in ED.
Continue to monitor
History of Ischemic Colitis
No abdominal pain currently.
Lactate 1.2.
CT shows celiac/SMA stenosis.
Monitor for symptoms; avoid hypovolemia/hypotension.
Benign Hypertension
Stable; continue home regimen with holding parameters.
Rheumatoid / Psoriatic Arthritis
On Enbrel chronically; last dose Wednesday.
Hold for now.
CODE STATUS: DNR
DVT prophylaxis: Heparin drip
Diet: Clear liquid diet
Family communication: Discussed with family at bedside
Disposition: Hold Eliquis.
Continue IV Zosyn.
MRCP ordered
Total time spent on today's encounter was 55 minutes which included time spent in counseling the patient/family regarding diagnosis and treatment plan as listed above, goals of care, and symptom management. Case was discussed with nursing staff,
specialists, and care coordinators/case management. All labs and imaging personally reviewed by me. Remainder the time spent in detailed review of previous records, lab data, imaging, and other medical provider documentation.
Part of this note was created using voice recognition system. Occasional wrong word or �sound alike� substitutions may have inadvertently occurred due to the inherent limitations of voice recognition software. If noted kindly bring it to my
attention for correction.
Anticipated Discharge: > 48 hours
Subjective/Interval History
-
Date of Service: August 11, 2025
Patient seen and examined at bedside, denies any chest pain or shortness of breath, no abdominal pain, no nausea, no vomiting, no diarrhea or constipation.
Objective Data
-
Labs:
Laboratory Results
08/10/25 08/11/25
23:21 05:50
APTT 102.9 H 81.6 H
Sodium 132 L
Potassium 3.8
Chloride 101
Carbon Dioxide 24
BUN 10
Creatinine 1.0
Glucose 93
Calcium 8.4
Total Bilirubin 2.1 H
AST 120 H
ALT 166 H
Alkaline Phosphatase 70
Vital Signs:
Vital Signs
Temp Pulse Resp BP Pulse Ox
98.5 F 71 16 146/61 95
08/11/25 07:35 08/11/25 08:50 08/11/25 07:35 08/11/25 08:50 08/11/25 07:35
I&O
08/10/25 08/11/25 08/12/25
06:59 06:59 06:59
Intake Total 250 / 250 3080 / 3080
Balance 250 / 250 3080 / 3080
Physical Exam
-
General: Well Developed, Well Nourished, No Apparent Distress and Comfortable
HEENT: Normocephalic, Atraumatic, Moist Mucous Membranes, No Ptosis, PERRLA and Nose Appears Normal
Respiratory: Clear to Auscultation and Non Labored Respirations
Cardiac: Regular Rhythm and S1/S2
Breast: Deferred by me
GI: Soft, Nontender, Nondistended and Normal Bowel Sounds
Genito-urinary: No Costovertebral Tender
Musculoskeletal: No Clubbing, No Cyanosis and No Edema
Skin: Warm
Neuro: Awake, Alert, Oriented, AO x 3 and No Motor Deficits
Psych: Calm
[2025-08-11 11:48] VITALS: BP 153/65
[2025-08-11] MEDS: LR 1000 IV (12:22)
--- NOTE | 2025-08-11 13:09 | W.PN.GI.CBS2 ---
Today's Communication / Plan
-
Follow-up MRI abdomen
Follow-up with surgery recommendation
Assessment / Plan
-
89-year-old female with history of A-fib on Eliquis, hypertension, RA , prior episode of ischemic colitis admitted to ED after eating Demarco dinner with back pain/nausea/vomiting. On admission there was leukocytosis�16.5. Repeat labs this a.m.
WBC was normal. Labs this a.m. AST 311/ALT 167. Alkaline phosphatase normal. Total bilirubin 1.5. Direct bilirubin 0.4. Lipase 102
-- Right upper quadrant abdominal pain with radiation to back/nausea/vomiting -suspicious for biliary colic. Ultrasound abdomen with gallstone with cholecystic fluid and extrahepatic biliary dilatation concerning for acute cholecystitis
plan
This a.m. labs AST 120/ALT 166�trending down. Total bilirubin was 2.1. Alkaline phosphatase was normal
Surgical note reviewed. Awaiting MRI abdomen
Diet per general surgery
IV antibiotics was initiated by medical team
Continue hold Eliquis. Currently on IV heparin for bridging
Total Time Spent with Patient (in minutes): 35
Subjective
Subjective
Date of Service: August 11, 2025
Denies any abdominal pain. Tolerating liquid diet
Objective
Data Reviewed
Laboratory Data:
Laboratory Results
08/10/25 14:17
08/11/25 05:50
Laboratory Results
APTT 81.6 Sec (23.4-35.0) H 08/11/25 05:50
Magnesium 1.9 mg/dl (1.6-2.3) 08/10/25 07:24
Total Bilirubin 2.1 mg/dl (0.2-1.3) H 08/11/25 05:50
AST 120 U/L (14-36) H 08/11/25 05:50
ALT 166 U/L (0-35) H 08/11/25 05:50
Alkaline Phosphatase 70 U/L (38-126) 12/27/25 05:50
Lipase 102 U/L (23-300) 08/10/25 00:35
Vital Signs and I&O:
Vital Signs
Temp Pulse Resp BP Pulse Ox
98.6 F 60 16 153/65 97
08/11/25 11:48 08/11/25 11:48 08/11/25 11:48 08/11/25 11:48 08/11/25 11:48
I&O
08/10/25 08/11/25 08/12/25
06:59 06:59 06:59
Intake Total 250 / 250 3080 / 3080 100 / 100
Balance 250 / 250 3080 / 3080 100 / 100
Physical Exam
Physical Exam
GI: Soft, Non Distended and Non Tender
--- NOTE | 2025-08-11 13:09 | W.PN.CD ---
Today's Communication / Plan
-
Continue IV heparin for A-fib given recent cardioversion and Eliquis on hold.
Plan for MRI. Cholecystectomy timing TBD.
Impression / Plan
-
89-year-old female with paroxysmal atrial fibrillation on Tikosyn and Eliquis and 2 recent cardioversions (07/20 and 08/07) who presents with nausea, vomiting, and abdominal pain found to have cholecystitis. Cardiology is consulted for preoperative
risk stratification and management of A-fib.
Cardiology: [facility]
Acute Cholecystitis:
-GI and surgery teams are consulted, plan for MRI then likely cholecystectomy later this admission after Eliquis washout (last dose 08/04 5 PM)
-on abx
PAF:
-was in rate controlled afib on arrival. Spontaneously converted to sinus rhythm.
-importantly, she was cardioverted on 07/20/25 and 08/06/25. Eliquis held for cholecystectomy. She is on IV heparin which requires intensive monitoring.
-continue dofetilide and metoprolol and follow telemetry
HTN:
-continue CCB, BB, and ARB
-monitor BP's
Valvular heart disease:
-Echo 07/01/24: Normal left ventricular size, wall thickness and systolic function. LV ejection fraction is 55-60% by Lord's method of discs. Normal right ventricular size and function. Mild to moderate mitral regurgitation. Mild to moderate
aortic regurgitation. Moderate tricuspid regurgitation. Estimated pulmonary artery pressure of 53 mmHg. Assuming a right atrial pressure of 3 mmHg.
-volume seems stable; monitor
Subjective: Abdominal pain improved. No CV complaints.
Physical Exam
Vital Signs/Labs
Vital Signs
Temp Pulse Resp BP Pulse Ox
98.6 F 60 16 153/65 97
08/11/25 11:48 08/11/25 11:48 08/11/25 11:48 08/11/25 11:48 08/11/25 11:48
08/10/25 08/11/2508/12/25
06:59 06:59 06:59
Actual Weight 149 lb 6 oz 153 lb 4.8 oz
08/10/25 14:17
08/11/25 05:50
APTT 81.6 Sec (23.4-35.0) H 08/11/25 05:50
Magnesium 1.9 mg/dl (1.6-2.3) 08/10/25 07:24
LAB Results
08/10/25
00:34
Troponin I < 0.012
Physical Exam
Constitutional: No acute distress and Comfortable
Cardiovascular: Rhythm & rate is regular, Pedal edema is absent, S1S2 is normal and Murmur/rub/gallop absent
Respiratory: Respiratory effort normal and Lungs clear to auscul.
Neuro/Psych: AO x 3
Data Reviewed
-
Date of Service: August 11, 2025
Medical Decision Making: Reviewed Test Results, Test Interpretation and Review of Case with other Provider
EKG: Tracing Personally Visualized and interpreted
Echo: Report Reviewed by me
Labs: Labs Reviewed by me
[2025-08-11 15:45] VITALS: BP 149/61
[2025-08-11] MEDS: LIPITOR 10 MG PO (17:32)
[2025-08-11 19:00] VITALS: BP 166/66
[2025-08-11 23:00] VITALS: BP 154/69
[2025-08-11] MEDS: HEPARIN 25000 UNITS/250 ML IV (23:07)
[2025-08-12] MEDS: ZOSYN 50 IV ×4 (00:25→17:51)
[2025-08-12 03:08] VITALS: BP 150/71
[2025-08-12] MEDS: TIKOSYN 125 MCG PO ×2 (05:14→17:34)
[2025-08-12 06:00] VITALS: BMI 26.1
[2025-08-12 06:52] LABS: Hematocrit 31.6 % (37.0-47.0); Hemoglobin 10.8 g/dL (12.0-16.0); Mean Corp Hgb Conc. 34.2 g/dL (33.0-37.0); Mean Corpuscular Volume 87.3 fL (81.0-99.0); Platelet Count 295 10^3/uL (130-400); Red Cell Dist. Width 12.6 % (11.5-14.5)
[2025-08-12 07:02] LABS: APTT 91.7 Sec (23.4-35.0)
[2025-08-12 07:30] LABS: ALT (SGPT) 114 U/L (0-35); AST (SGOT) 55 U/L (14-36); Albumin 3.8 g/dl (3.5-5.0); Alkaline Phosphatase 70 U/L (38-126); Blood Urea Nitrogen 7 mg/dl (7-17); Calcium 9.0 mg/dl (8.4-10.2); Carbon Dioxide 27 mmol/L (22-30); Chloride 106 mmol/L (98-107); Estimated Creatinine Clearance 34 ml/min; Glucose 93 mg/dl (70-99); Potassium 3.5 mmol/L (3.5-5.1); Sodium 139 mmol/L (135-145); Total Protein 6.6 g/dl (6.3-8.2); eGFR 54.19
[2025-08-12 07:35] VITALS: BP 168/65
[2025-08-12] MEDS: DIOVAN 160 MG PO (08:12)
[2025-08-12] MEDS: TOPROL XL 25 MG PO (08:12)
[2025-08-12] MEDS: PROTONIX 40 MG PO (08:12)
[2025-08-12 11:12] VITALS: BP 173/68
--- NOTE | 2025-08-12 11:26 | W.PN.HOSP.TC ---
Today's Communication/Plan
-
Hold Eliquis. Needs 48 hours of washout
Continue IV Zosyn.
MRCP done, report pending
Assessment / Plan
Assessment / Plan
Impression:
Patient is a pleasant 89y F with PMH significant for paroxysmal A-Fib, hypertension and RA who presents to ED complaining of back pain and N/V. Patient states that she felt very well for much of the day today. She had a rich dinner (roast beef
and chocolate cake) and noted some mild nausea when going to bed this evening. While lying in bed she developed pain in the R posterior shoulder / upper back. She noted some 'tightness' in the chest and then developed N/V. Patient took her vitals
at home and noted that her BP was elevated (190/90) and her pulse was elevated (100-110). She called family for assistance and was brought to the ED for further evaluation.
Patient had additional episodes of emesis in the ambulance. Emesis was describes as mostly food material. No blood. No abdominal pain.
After arrival to the ED, patient states that she feels much improved. She has no residual pain or nausea at the time of my exam.
Patient is noted to be in A-Fib on monitor here in the ED - s/p cardioversion 08/06 here.
Patient admitted on the hospital service, kept n.p.o., started on IV Zosyn, GI consulted, cardiology consulted, ultrasound abdomen ordered
Converted to sinus rhythm, ultrasound done showed Gallstones with pericholecystic fluid and extrahepatic biliary dilatation concerning for acute cholecystitis. Clinical and laboratory correlation recommended. Surgery team consulted.
MRCP ordered
Assessment/plan:
Cholelithiasis �Acute Cholecystitis
Admitted to telemetry floor for further evaluation and treatment.
Abdominal pain most likely consistent with biliary colic (shoulder discomfort, N/V, postprandial onset).
CT: gallstones without wall thickening.
LFTs mildly elevated compared to baseline.
Given tenderness, leukocytosis, patient was started on IV Zosyn. (WBCs improved)
Abdomen ultrasound pending.
GI consulted for recommendations.
If confirmed acute cholecystitis will obtain surgery consult.
Monitor for recurrent symptoms.
Ultrasound done showed Gallstones with pericholecystic fluid and extrahepatic biliary dilatation concerning for acute cholecystitis. Clinical and laboratory correlation recommended. Surgery team consulted.
Clear liquid diet for now, need 48 hours washout for Eliquis.
MRCP ordered
Paroxysmal Atrial Fibrillation
s/p Cardioversion on 07/20 and 08/06.
Currently in A-Fib, initial HR ~100 bpm, now heart rate better controlled--> now sinus rhythm
Continue current regimen (including dofetilide,Toprol-XL, held Eliquis).
Cardiology consulted.
Started on heparin drip bridge
Hypokalemia
IV replacement given in ED.
Continue to monitor
History of Ischemic Colitis
No abdominal pain currently.
Lactate 1.2.
CT shows celiac/SMA stenosis.
Monitor for symptoms; avoid hypovolemia/hypotension.
Benign Hypertension
Stable; continue home regimen with holding parameters.
Rheumatoid / Psoriatic Arthritis
On Enbrel chronically; last dose Wednesday.
Hold for now.
CODE STATUS: DNR
DVT prophylaxis: Heparin drip
Diet: Clear liquid diet
Family communication: Discussed with family at bedside
Disposition: Hold Eliquis.
Continue IV Zosyn.
MRCP done, report pending
Total time spent on today's encounter was 55 minutes which included time spent in counseling the patient/family regarding diagnosis and treatment plan as listed above, goals of care, and symptom management. Case was discussed with nursing staff,
specialists, and care coordinators/case management. All labs and imaging personally reviewed by me. Remainder the time spent in detailed review of previous records, lab data, imaging, and other medical provider documentation.
Part of this note was created using voice recognition system. Occasional wrong word or �sound alike� substitutions may have inadvertently occurred due to the inherent limitations of voice recognition software. If noted kindly bring it to my
attention for correction.
Anticipated Discharge: > 48 hours
Subjective/Interval History
-
Date of Service: August 12, 2025
Patient seen and examined at bedside, denies any chest pain or shortness of breath, mild abdominal pain, no nausea, no vomiting, no diarrhea or constipation.
Objective Data
-
Labs:
Laboratory Results
08/12/25
06:40
WBC 7.3
Hgb 10.8 L
Hct 31.6 L
Plt Count 295
APTT 91.7 H
Sodium 139
Potassium 3.5
Chloride 106
Carbon Dioxide 27
BUN 7
Creatinine 1.0
Glucose 93
Calcium 9.0
Total Bilirubin 2.0 H
AST 55 H
ALT 114 H
Alkaline Phosphatase 70
Vital Signs:
Vital Signs
Temp Pulse Resp BP Pulse Ox
98.4 F 67 18 173/68 96
08/12/25 11:12 08/12/25 11:12 08/12/25 11:12 08/12/25 11:12 08/12/25 11:12
I&O
08/11/25 08/12/25 08/13/25
06:59 06:59 06:59
Intake Total 3080 / 3080 2451 / 2451 480 / 480
Balance 3080 / 3080 2451 / 2451 480 / 480
Physical Exam
-
General: Well Developed, Well Nourished, No Apparent Distress and Comfortable
HEENT: Normocephalic, Atraumatic, Moist Mucous Membranes, No Ptosis, PERRLA and Nose Appears Normal
Respiratory: Clear to Auscultation and Non Labored Respirations
Cardiac: Regular Rhythm and S1/S2
Breast: Deferred by me
GI: Soft, Nontender, Nondistended and Normal Bowel Sounds
Genito-urinary: No Costovertebral Tender
Musculoskeletal: No Clubbing, No Cyanosis and No Edema
Skin: Warm
Neuro: Awake, Alert, Oriented, AO x 3 and No Motor Deficits
Psych: Calm
[2025-08-12] MEDS: APRESOLINE 10 MG IV (11:45)
--- NOTE | 2025-08-12 11:54 | W.PN.CD ---
Today's Communication / Plan
-
Resume home amlodipine
Continue IV heparin
Cholecystectomy timing TBD
Impression / Plan
-
89-year-old female with paroxysmal atrial fibrillation on Tikosyn and Eliquis and 2 recent cardioversions (07/20 and 08/07) who presents with nausea, vomiting, and abdominal pain found to have cholecystitis. Cardiology is consulted for preoperative
risk stratification and management of A-fib.
Cardiology: [facility]
Acute Cholecystitis:
-GI and surgery teams are consulted, plan for MRI (completed today) then likely cholecystectomy later this admission after Eliquis washout (last dose 08/09 PM)
-on abx
PAF:
-was in rate controlled afib on arrival. Spontaneously converted to sinus rhythm.
-importantly, she was cardioverted on 07/20/25 and 08/06/25. Eliquis held for cholecystectomy. She is on IV heparin which requires intensive monitoring.
-continue dofetilide and metoprolol and follow telemetry
HTN:
-She is hypertensive. Resume amlodipine at home dose.
-Continue BB and ARB
-monitor BP's
Valvular heart disease:
-Echo 07/01/24: Normal left ventricular size, wall thickness and systolic function. LV ejection fraction is 55-60% by Lord's method of discs. Normal right ventricular size and function. Mild to moderate mitral regurgitation. Mild to moderate
aortic regurgitation. Moderate tricuspid regurgitation. Estimated pulmonary artery pressure of 53 mmHg. Assuming a right atrial pressure of 3 mmHg.
-volume seems stable; monitor
Subjective: No CV complaints. Remains on heparin with no signs or symptoms of bleeding.
Physical Exam
Vital Signs/Labs
Vital Signs
Temp Pulse Resp BP Pulse Ox
98.4 F 67 18 173/68 96
08/12/25 11:12 08/12/25 11:12 08/12/25 11:12 08/12/25 11:45 08/12/25 11:12
08/11/25 08/12/25 08/13/25
06:59 06:59 06:59
Actual Weight 153 lb 4.8 oz 151 lb 14.4 oz
08/12/25 06:40
08/12/25 06:40
APTT 91.7 Sec (23.4-35.0) H 08/12/25 06:40
Magnesium 1.9 mg/dl (1.6-2.3) 08/10/25 07:24
LAB Results
08/10/25
00:34
Troponin I < 0.012
Physical Exam
Constitutional: No acute distress and Comfortable
Cardiovascular: Rhythm & rate is regular, Pedal edema is absent, Systolic murmur present and S1S2 is normal
Respiratory: Respiratory effort normal and Lungs clear to auscul.
Neuro/Psych: AO x 3
Data Reviewed
-
Date of Service: August 12, 2025
Medical Decision Making: Reviewed Test Results, Test Interpretation and Review of Case with other Provider
EKG: Tracing Personally Visualized and interpreted
Echo: Report Reviewed by me
Labs: Labs Reviewed by me
--- NOTE | 2025-08-12 12:01 | W.PN.GS2 ---
Today's Communication / Plan
-
Tentative lap rudolph tomorrow
NPO after MN, hold heparin in am
Assessment / Plan
-
Ms Eason is an 89 yo female with a h/o AFib (on Eliquis with LD 08/10 pm) s/p CV in EP lab on 07/20 with subsequent CV in the ED on 08/06 as she reverted back into AFib and recent UTI (completed abx on 08/04) who presented through the ED last night
with sharp pain to the RUQ and epigastrium now resolved.
CT imaging with mildly distended gallbladder with cholelithiasis noted with f/u US demonstrating some distention without wall thickening. Some minimal pericholecystic fluid and extrahepatic biliary dilatation noted with CBD measuring 11mm. Okeefe's
is not commented on. ?biliary colic vs cholecystitis vs choledocholithiasis
AFVSS
Leukocytosis resolved
Bilirubin at 2.0, mild transaminitis present
Pain resolved
MRI without choledocholithiasis, some gallbladder wall edema.
Plan:
Appreciate GI recs
Ok for clears
NPO after MN for tentative OR in AM for lap rudolph
Cardiology following, on heparin bridge while Eliquis on hold. Hold heparin tomorrow AM for tentative procedure.
C/W IV abx
Subjective Data
-
Date of Service: August 12, 2025
Pt seen and examined at bedside with Dr. Retana. Denies n/v/pain. Tolerating clears.
Objective Data
-
Intake and Output
08/11/25 08/12/25 08/13/25
06:59 06:59 06:59
Intake Total 3080 / 3080 2451 / 2451 480 / 480
Balance 3080 / 3080 2451 / 2451 480 / 480
Intake:
Oral fluids 960 / 960 1520 / 1520 480 / 480
IV fluids (Total) 1919 681 / 681
IV piggybacks 200 / 200 250 / 250
Other:
Number of approximated SMALL 2
amounts of urine
Number of approximated MODERATE 2 1
amounts of urine
Number of approximated LARGE 2
amounts of urine
Vital Signs
Temp Pulse Resp BP Pulse Ox
98.4 F 67 18 173/68 96
08/12/25 11:12 08/12/25 11:12 08/12/25 11:12 08/12/25 11:45 08/12/25 11:12
Lab Results
08/12/25 06:40
08/12/25 06:40
Calcium 9.0 mg/dl (8.4-10.2) 08/12/25 06:40
Magnesium 1.9 mg/dl (1.6-2.3) 08/10/25 07:24
Total Bilirubin 2.0 mg/dl (0.2-1.3) H 08/12/25 06:40
Direct Bilirubin 0.4 mg/dl (0.0-0.4) 08/10/25 07:24
AST 55 U/L (14-36) H 08/12/25 06:40
ALT 114 U/L (0-35) H 08/12/25 06:40
Alkaline Phosphatase 70 U/L (38-126) 08/12/25 06:40
Total Protein 6.6 g/dl (6.3-8.2) 08/12/25 06:40
Albumin 3.8 g/dl (3.5-5.0) 08/12/25 06:40
Physical Exam
-
NAD
ABD soft, nt, nd
--- NOTE | 2025-08-12 12:30 | W.PN.GI.CBS2 ---
Addendum entered and electronically signed by Nikole Markham MD 08/12/25 13:18:
MRI - no biliary dilatation / CBD stone .
will s/o. continue further mx as per surgery
Original Note:
Today's Communication / Plan
-
Follow-up MRI
Assessment / Plan
-
89-year-old female with history of A-fib on Eliquis, hypertension, RA , prior episode of ischemic colitis admitted to ED after eating [place] dinner with back pain/nausea/vomiting. On admission there was leukocytosis�16.5. Repeat labs this a.m.
WBC was normal. Labs this a.m. AST 311/ALT 167. Alkaline phosphatase normal. Total bilirubin 1.5. Direct bilirubin 0.4. Lipase 102
-- Right upper quadrant abdominal pain with radiation to back/nausea/vomiting -suspicious for biliary colic. Ultrasound abdomen with gallstone with cholecystic fluid and extrahepatic biliary dilatation concerning for acute cholecystitis
plan
This a.m. labs AST 55/ALT 114�trending down. Total bilirubin was 2. Alkaline phosphatase was normal
Awaiting MRI abdomen . If MRCP suggestive of CBD stone will perform ERCP prior to cholecystectomy.
General Surgery following
Diet per general surgery
IV antibiotics was initiated by medical team
Continue hold Eliquis. Currently on IV heparin for bridging
Total Time Spent with Patient (in minutes): 35
Subjective
Subjective
Date of Service: August 12, 2025
Denies any abdominal pain/nausea/vomiting
Objective
Data Reviewed
Laboratory Data:
Laboratory Results
08/12/25 06:40
08/12/25 06:40
Laboratory Results
APTT 91.7 Sec (23.4-35.0) H 08/12/25 06:40
Magnesium 1.9 mg/dl (1.6-2.3) 08/10/25 07:24
Total Bilirubin 2.0 mg/dl (0.2-1.3) H 08/12/25 06:40
AST 55 U/L (14-36) H 08/12/25 06:40
ALT 114 U/L (0-35) H 08/12/25 06:40
Alkaline Phosphatase 70 U/L (38-126) 08/12/25 06:40
Lipase 102 U/L (23-300) 08/10/25 00:35
Vital Signs and I&O:
Vital Signs
Temp Pulse Resp BP Pulse Ox
98.4 F 67 18 173/68 96
08/12/25 11:12 08/12/25 11:12 08/12/25 11:12 08/12/25 11:45 08/12/25 11:12
I&O
08/11/25 08/12/25 08/13/25
06:59 06:59 06:59
Intake Total 3080 / 3080 2451 / 2451 480 / 480
Balance 3080 / 3080 2451 / 2451 480 / 480
Physical Exam
Physical Exam
GI: Soft, Non Distended and Non Tender
[2025-08-12] MEDS: NORVASC 2.5 MG PO ×2 (12:40→21:35)
[2025-08-12] MEDS: LR 1000 IV (13:17)
--- NOTE | 2025-08-12 15:02 | CM ---
tire shop manager reviewed patient's chart and met with patient and daughter at bedside, patient lives in a one story home with 2 steps to enter, patient is independent with adl's and uses a cane or walker with ambulation. Patient is for possible OR
tomorrow, home when stable.
PCP: Dr Diego
Pharmacy: [facility] in [place].
[2025-08-12 15:19] VITALS: BP 168/63
[2025-08-12] MEDS: LIPITOR 10 MG PO (17:34)
[2025-08-12 19:10] VITALS: BP 165/68
[2025-08-12 23:50] VITALS: BP 136/62
[2025-08-13] VITALS (11 sets, daily range): BP systolic 102–170; BP diastolic 42–77; BMI 26.1
[2025-08-13] MEDS: ZOSYN 50 IV ×2 (00:20→05:48)
--- NOTE | 2025-08-13 02:05 | PTCARENOTE ---
Heparin stopped @0159 as per orders.
[2025-08-13] MEDS: LR 1000 IV (02:43)
[2025-08-13] MEDS: TIKOSYN 125 MCG PO ×2 (05:48→17:15)
--- NOTE | 2025-08-13 07:20 | W.PN.GS2 ---
Today's Communication / Plan
-
-- Laparoscopic cholecystectomy with IOC
-- NPO, IVF
-- Antibiotics: Zosyn
-- Heparin drip on hold starting at 2 AM
Assessment / Plan
-
Ms Eason is an 89 yo female with a h/o AFib (on Eliquis with LD 08/10 pm) s/p CV in EP lab on 07/20 with subsequent CV in the ED on 08/06 as she reverted back into AFib and recent UTI (completed abx on 08/04) who presented through the ED last night
with sharp pain to the RUQ and epigastrium now resolved.
CT imaging with mildly distended gallbladder with cholelithiasis noted with f/u US demonstrating some distention without wall thickening. Some minimal pericholecystic fluid and extrahepatic biliary dilatation noted with CBD measuring 11mm. Okeefe's
is not commented on. ?biliary colic vs cholecystitis vs choledocholithiasis
MRI without choledocholithiasis, some gallbladder wall edema.
AFVSS
No repeat labs
Clinical history and workup consistent with biliary colic versus choledocholithiasis. The natural history and pathophysiology of biliary and stone disease was discussed. Role of cholecystectomy was reviewed. Prior notes and documentation
reviewed. Plan for cholecystectomy today.
Plan for a laparoscopic cholecystectomy with cholangiogram. The procedure itself, as well as the risks, benefits, and alternatives was discussed. Specifically, we discussed the risks of bleeding, infection, injury to surrounding structures (bowel,
bile ducts), CBD injury, need for open procedure. Typical postprocedural recovery including activity restrictions and the 10 to 20% risk of fluctuations in GI function were discussed. All questions answered. Consent signed.
Plan:
-- Laparoscopic cholecystectomy with IOC
-- NPO, IVF
-- Antibiotics: Zosyn
-- Heparin drip on hold starting at 2 AM
Subjective Data
-
Date of Service: August 13, 2025
No complaints. Denies any current abdominal pain or nausea. No fevers. Denies any prior attacks or knowledge of gallstones. Current attack was primarily nausea that occurred later in the evening after [place] dinner. She denies any jaundice,
pale stools, or tea colored urine.
Objective Data
-
Intake and Output
08/12/25 08/13/25 08/14/25
06:59 06:59 06:59
Intake Total 2451 / 2451 480 / 480 900 / 900
Balance 2451 / 2451 480 / 480 900 / 900
Intake:
Oral fluids 1520 / 1520 480 / 480
IV fluids (Total) 681 / 681 100 / 100
IV piggybacks 250 / 250 800 / 800
Other:
Number of approximated SMALL 2
amounts of urine
Number of approximated MODERATE 1 1
amounts of urine
Vital Signs
Temp Pulse Resp BP Pulse Ox
98.2 F 77 16 115/70 96
08/13/25 02:30 08/13/25 02:30 08/13/25 02:30 08/13/25 02:30 08/13/25 02:30
Lab Results
08/12/25 06:40
Calcium 9.0 mg/dl (8.4-10.2) 08/12/25 06:40
Magnesium 1.9 mg/dl (1.6-2.3) 08/10/25 07:24
Total Bilirubin 2.0 mg/dl (0.2-1.3) H 08/12/25 06:40
Direct Bilirubin 0.4 mg/dl (0.0-0.4) 08/10/25 07:24
AST 55 U/L (14-36) H 08/12/25 06:40
ALT 114 U/L (0-35) H 08/12/25 06:40
Alkaline Phosphatase 70 U/L (38-126) 08/12/25 06:40
Total Protein 6.6 g/dl (6.3-8.2) 08/12/25 06:40
Albumin 3.8 g/dl (3.5-5.0) 08/12/25 06:40
Physical Exam
-
Gen: NAD
Abd: soft, NT/ND, non-peritoneal, chitra-umbilical incision from tubal ligation well healed
Patient has a jonas catheter: No
Patient has a central line: No
--- NOTE | 2025-08-13 07:25 | W.SUR.PREOP ---
Pre-Operative Surgical Note
-
I have examined this patient prior to the performance of the scheduled procedure.
The patient's condition is unchanged from the time of the current History and
Physical and the patient is able to undergo the scheduled procedure.
[2025-08-13] MEDS: TOPROL XL 25 MG PO (08:31)
[2025-08-13] MEDS: NORVASC 2.5 MG PO ×2 (08:31→20:34)
[2025-08-13] MEDS: PROTONIX 40 MG PO (08:32)
[2025-08-13] MEDS: DIOVAN 160 MG PO (08:32)
[2025-08-13 08:38] LABS: ALT (SGPT) 84 U/L (0-35); AST (SGOT) 31 U/L (14-36); Albumin 4.1 g/dl (3.5-5.0); Alkaline Phosphatase 73 U/L (38-126); Blood Urea Nitrogen 5 mg/dl (7-17); Calcium 9.2 mg/dl (8.4-10.2); Carbon Dioxide 27 mmol/L (22-30); Chloride 103 mmol/L (98-107); Estimated Creatinine Clearance 37 ml/min; Glucose 95 mg/dl (70-99); Potassium 3.7 mmol/L (3.5-5.1); Sodium 137 mmol/L (135-145); Total Protein 6.9 g/dl (6.3-8.2); eGFR > 60.00
--- NOTE | 2025-08-13 08:38 | W.PN.CD ---
Today's Communication / Plan
-
- Patient scheduled to undergo laparoscopic cholecystectomy this a.m.; proceed as scheduled.
- Heparin drip stopped at 2 AM prior to surgery; resume as soon as possible post-surgery when cleared by surgical team as patient underwent recent cardioversions on 07/20/2025 and 08/06/2025.
Impression / Plan
-
89-year-old female with paroxysmal atrial fibrillation on Tikosyn and Eliquis and 2 recent cardioversions (07/20 and 08/07) who presents with nausea, vomiting, and abdominal pain found to have cholecystitis. Cardiology is consulted for preoperative
risk stratification and management of A-fib.
Cardiology: [facility]
Acute Cholecystitis:
- Patient scheduled to undergo laparoscopic cholecystectomy this a.m.; proceed as scheduled.
- Continue antibiotics.
PAF:
-was in rate controlled afib on arrival. Spontaneously converted to sinus rhythm.
-importantly, she was cardioverted on 07/20/25 and 08/06/25. Eliquis held for cholecystectomy. She is on IV heparin which requires intensive monitoring.
-continue dofetilide and metoprolol and follow telemetry
- PSVT noted on telemetry; currently in sinus rhythm.
- Heparin drip stopped at 2 AM prior to surgery; resume as soon as possible post-surgery when cleared by surgical team as patient underwent recent cardioversions on 07/20/2025 and 08/06/2025.
HTN:
-Blood pressure elevated.
-Continue current medication regimen for now; reassess post-surgery.
Valvular heart disease:
-Echo 07/01/24: Normal left ventricular size, wall thickness and systolic function. LV ejection fraction is 55-60% by Lord's method of discs. Normal right ventricular size and function. Mild to moderate mitral regurgitation. Mild to moderate
aortic regurgitation. Moderate tricuspid regurgitation. Estimated pulmonary artery pressure of 53 mmHg. Assuming a right atrial pressure of 3 mmHg.
-volume seems stable; monitor
Subjective: No cardiac complaints this a.m.
Physical Exam
Vital Signs/Labs
Vital Signs
Temp Pulse Resp BP Pulse Ox
98.9 F 71 16 170/65 97
08/13/25 07:25 08/13/25 07:25 08/13/25 07:25 08/13/25 07:25 08/13/25 07:25
08/12/25 08/13/25 08/14/25
06:59 06:59 06:59
Actual Weight 68.901 kg
08/12/25 06:40
08/13/25 06:56
APTT 91.7 Sec (23.4-35.0) H 08/12/25 06:40
Magnesium 1.9 mg/dl (1.6-2.3) 08/10/25 07:24
Physical Exam
Constitutional: No acute distress and Comfortable
EENT: Anicteric
Cardiovascular: Rhythm & rate is regular, Pedal edema is absent, Systolic murmur present (2/6) and S1S2 is normal
Respiratory: Respiratory effort normal and Lungs clear to auscul.
GI: Soft
Neuro/Psych: AO x 3
Other: Skin (Warm, dry, intact)
Data Reviewed
-
Date of Service: August 13, 2025
EKG: Report Reviewed by me (Telemetry: Sinus rhythm, PSVT)
Medical Tests (PFT, Pathology etc): Discussed with Nurse, Discussed with Patient and Discussed with Family (Daughter, Natasha, at bedside)
Labs: Labs Reviewed by me
--- NOTE | 2025-08-13 10:41 | W.PN.HOSP.TC ---
Today's Communication/Plan
-
N.p.o. for lap rudolph today
Assessment / Plan
Assessment / Plan
Impression:
Patient is a pleasant 89y F with PMH significant for paroxysmal A-Fib, hypertension and RA who presents to ED complaining of back pain and N/V. Patient states that she felt very well for much of the day today. She had a rich dinner (roast beef
and chocolate cake) and noted some mild nausea when going to bed this evening. While lying in bed she developed pain in the R posterior shoulder / upper back. She noted some 'tightness' in the chest and then developed N/V. Patient took her vitals
at home and noted that her BP was elevated (190/90) and her pulse was elevated (100-110). She called family for assistance and was brought to the ED for further evaluation.
Patient had additional episodes of emesis in the ambulance. Emesis was describes as mostly food material. No blood. No abdominal pain.
After arrival to the ED, patient states that she feels much improved. She has no residual pain or nausea at the time of my exam.
Patient is noted to be in A-Fib on monitor here in the ED - s/p cardioversion 08/06 here.
Patient admitted on the hospital service, kept n.p.o., started on IV Zosyn, GI consulted, cardiology consulted, ultrasound abdomen ordered
Converted to sinus rhythm, ultrasound done showed Gallstones with pericholecystic fluid and extrahepatic biliary dilatation concerning for acute cholecystitis. Clinical and laboratory correlation recommended. Surgery team consulted.
MRCP ordered shows no CBD dilation.
For lap rudolph
Assessment/plan:
Cholelithiasis �Acute Cholecystitis
Admitted to telemetry floor for further evaluation and treatment.
Abdominal pain most likely consistent with biliary colic (shoulder discomfort, N/V, postprandial onset).
CT: gallstones without wall thickening.
LFTs mildly elevated compared to baseline.
Given tenderness, leukocytosis, patient was started on IV Zosyn. (WBCs improved)
Abdomen ultrasound pending.
GI consulted for recommendations.
If confirmed acute cholecystitis will obtain surgery consult.
Monitor for recurrent symptoms.
Ultrasound done showed Gallstones with pericholecystic fluid and extrahepatic biliary dilatation concerning for acute cholecystitis. Clinical and laboratory correlation recommended. Surgery team consulted.
Clear liquid diet for now, need 48 hours washout for Eliquis.
MRCP ordered shows no CBD dilation.
For lap rudolph today
Paroxysmal Atrial Fibrillation
s/p Cardioversion on 07/20 and 08/06.
Currently in A-Fib, initial HR ~100 bpm, now heart rate better controlled--> now sinus rhythm
Continue current regimen (including dofetilide,Toprol-XL, held Eliquis).
Cardiology consulted.
Started on heparin drip bridge (held for the surgery)
Hypokalemia
IV replacement given in ED.
Continue to monitor
History of Ischemic Colitis
No abdominal pain currently.
Lactate 1.2.
CT shows celiac/SMA stenosis.
Monitor for symptoms; avoid hypovolemia/hypotension.
Benign Hypertension
Stable; continue home regimen with holding parameters.
Rheumatoid / Psoriatic Arthritis
On Enbrel chronically; last dose Wednesday.
Hold for now.
CODE STATUS: DNR
DVT prophylaxis: Heparin drip
Diet: Clear liquid diet
Family communication: Discussed with family at bedside
Disposition: Lap rudolph
Total time spent on today's encounter was 55 minutes which included time spent in counseling the patient/family regarding diagnosis and treatment plan as listed above, goals of care, and symptom management. Case was discussed with nursing staff,
specialists, and care coordinators/case management. All labs and imaging personally reviewed by me. Remainder the time spent in detailed review of previous records, lab data, imaging, and other medical provider documentation.
Part of this note was created using voice recognition system. Occasional wrong word or �sound alike� substitutions may have inadvertently occurred due to the inherent limitations of voice recognition software. If noted kindly bring it to my
attention for correction.
Anticipated Discharge: Within 24 hours
Subjective/Interval History
-
Date of Service: August 13, 2025
Patient seen and examined at bedside, denies any chest pain or shortness of breath, no abdominal pain, no nausea, no vomiting, no diarrhea or constipation.
For lap rudolph today
Objective Data
-
Labs:
Laboratory Results
08/13/25
06:56
Sodium 137
Potassium 3.7
Chloride 103
Carbon Dioxide 27
BUN 5 L
Creatinine 0.9
Glucose 95
Calcium 9.2
Total Bilirubin 2.1 H
AST 31
ALT 84 H
Alkaline Phosphatase 73
Vital Signs:
Vital Signs
Temp Pulse Resp BP Pulse Ox
98.9 F 71 16 170/75 97
08/13/25 07:25 08/13/25 08:31 08/13/25 07:25 08/13/25 08:31 08/13/25 07:25
I&O
08/12/25 08/13/25 08/14/25
06:59 06:59 06:59
Intake Total 2451 / 2451 480 / 480 900 / 900
Balance 2451 / 2451 480 / 480 900 / 900
Physical Exam
-
General: Well Developed, Well Nourished, No Apparent Distress and Comfortable
HEENT: Normocephalic, Atraumatic, Moist Mucous Membranes, No Ptosis, PERRLA and Nose Appears Normal
Respiratory: Clear to Auscultation and Non Labored Respirations
Cardiac: Regular Rhythm and S1/S2
Breast: Deferred by me
GI: Soft, Nontender, Nondistended and Normal Bowel Sounds
Genito-urinary: No Costovertebral Tender
Musculoskeletal: No Clubbing, No Cyanosis and No Edema
Skin: Warm
Neuro: Awake, Alert, Oriented, AO x 3 and No Motor Deficits
Psych: Calm
--- NOTE | 2025-08-13 12:06 | W.IMMPOSTOP ---
Surgical Immed Post Op Note
-
Primary Surgeon: Lien
Assisting Surgeon: JOS Huerta
Pre-op Diagnosis: Symptomatic cholelithiasis
Post-op Diagnosis: Symptomatic cholelithiasis and choledocholithiasis
Procedure Performed: Laparoscopic cholecystectomy with IOC
Anesthesia Type: General
Specimen / Cultures:
1. Gallbladder
Estimated Blood Loss: 3 cc
Complications: None
Operative Findings:
1. Distended, flaccid GB, bile staining of tissues, mild wall thickening
2. Critical view
3. IOC with thick sludge milked from CBD and cystic duct through ductotomy, no filling defect or obstruction
4. Duct and artery taken with clips
[2025-08-13] MEDS: ZOSYN IV (13:00)
--- NOTE | 2025-08-13 15:30 | CM ---
CM reviewed chart- ADC tomorrow
Pt in OR today for lap rudolph
CM will follow for possible post op needs
Discharge Disposition- anticipate home, likely no needs
[2025-08-13] MEDS: LIPITOR 10 MG PO (17:15)
[2025-08-13] MEDS: ULTRAM 25 MG PO (20:34)
[2025-08-13] MEDS: TYLENOL 650 MG PO (23:14)
[2025-08-13] MEDS: LR IV (23:18)
[2025-08-14] VITALS (7 sets, daily range): BP systolic 114–153; BP diastolic 52–69
[2025-08-14] MEDS: TIKOSYN 125 MCG PO ×2 (05:42→17:19)
[2025-08-14] MEDS: TYLENOL 650 MG PO (05:43)
[2025-08-14 07:34] LABS: Hematocrit 31.7 % (37.0-47.0); Hemoglobin 10.6 g/dL (12.0-16.0); Mean Corp Hgb Conc. 33.4 g/dL (33.0-37.0); Mean Corpuscular Volume 87.6 fL (81.0-99.0); Platelet Count 341 10^3/uL (130-400); Red Cell Dist. Width 12.7 % (11.5-14.5)
--- NOTE | 2025-08-14 07:51 | W.PN.GS2 ---
Today's Communication / Plan
-
-- OK to restart Hep gtt, recheck Hb tomorrow if stable OK to DC on Eliquis starting tomorrow
-- DC instructions updated, will follow peripherally to be sure Hb stable tomorrow AM
Assessment / Plan
-
Ms Eason is an 89 yo female with a h/o AFib (on Eliquis with LD 08/10 pm) s/p CV in EP lab on 07/20 with subsequent CV in the ED on 08/06 as she reverted back into AFib and recent UTI (completed abx on 08/04) who presented through the ED last night
with sharp pain to the RUQ and epigastrium now resolved.
CT imaging with mildly distended gallbladder with cholelithiasis noted with f/u US demonstrating some distention without wall thickening. Some minimal pericholecystic fluid and extrahepatic biliary dilatation noted with CBD measuring 11mm. Okeefe's
is not commented on. ?biliary colic vs cholecystitis vs choledocholithiasis
MRI without choledocholithiasis, some gallbladder wall edema.
POD#1 s/p laparoscopic cholecystectomy with IOC
AFVSS
Repeat labs with normal WBC, stable Hb, electrolytes and LFTs pending
Recovering well. No postoperative concerns.
Plan:
-- LFD
-- Pain control: Tylenol, Tramadol PRN (may not need)
-- Abx: none further needed
-- OK to restart Hep gtt, recheck Hb tomorrow if stable OK to DC on Eliquis starting tomorrow
-- DC instructions updated, will follow peripherally to be sure Hb stable tomorrow AM
Subjective Data
-
Date of Service: August 14, 2025
No complaints. Pain well-controlled. No nausea or vomiting. No fevers.
Objective Data
-
Intake and Output
08/13/25 08/14/25 08/15/25
06:59 06:59 06:59
Intake Total 480 / 480 1300 / 1300
Balance 480 / 480 1300 / 1300
Intake:
Oral fluids 480 / 480
IV fluids (Total) 500 / 500
IV piggybacks 800 / 800
Other:
How many times incontinent 1
MODERATE amount urine
Number of approximated MODERATE 1 1
amounts of urine
Vital Signs
Temp Pulse Resp BP Pulse Ox
98.4 F 74 16 114/65 95
08/14/25 03:14 08/14/25 03:14 08/14/25 03:14 08/14/25 03:14 08/14/25 03:14
Lab Results
08/14/25 07:11
Calcium 9.2 mg/dl (8.4-10.2) 08/13/25 06:56
Magnesium 1.9 mg/dl (1.6-2.3) 08/10/25 07:24
Total Bilirubin 2.1 mg/dl (0.2-1.3) H 08/13/25 06:56
Direct Bilirubin 0.4 mg/dl (0.0-0.4) 08/10/25 07:24
AST 31 U/L (14-36) 08/13/25 06:56
ALT 84 U/L (0-35) H 08/13/25 06:56
Alkaline Phosphatase 73 U/L (38-126) 08/13/25 06:56
Total Protein 6.9 g/dl (6.3-8.2) 08/13/25 06:56
Albumin 4.1 g/dl (3.5-5.0) 08/13/25 06:56
Physical Exam
-
Gen: NAD
Abd: soft, minimal tenderness, ND, non-peritoneal, incisions c/d/i - no erythema, ecchymosis or drainage
Patient has a jonas catheter: No
Patient has a central line: No
--- NOTE | 2025-08-14 08:07 | W.PN.CD ---
Today's Communication / Plan
-
- Status-post successful laparoscopic cholecystectomy yesterday; hemoglobin stable.
- Okay to resume heparin drip per Surgery--will place order now; if hemoglobin stable tomorrow a.m., can resume Eliquis.
Impression / Plan
-
89-year-old female with paroxysmal atrial fibrillation on Tikosyn and Eliquis and 2 recent cardioversions (07/20 and 08/07) who presents with nausea, vomiting, and abdominal pain found to have cholecystitis. Cardiology is consulted for preoperative
risk stratification and management of A-fib.
Cardiology: [facility]
Acute Cholecystitis:
- Status-post successful laparoscopic cholecystectomy yesterday; hemoglobin stable.
- Continue routine postop management as directed by CT Surgery.
PAF/PSVT:
-Was in rate controlled afib on arrival; spontaneously converted to sinus rhythm.
-importantly, she was cardioverted on 07/20/25 and 08/06/25. Eliquis held for cholecystectomy. She is on IV heparin which requires intensive monitoring.
-Continue dofetilide and metoprolol and telemetry monitoring.
- Very brief runs of PSVT noted on telemetry; currently in sinus rhythm.
- Okay to resume heparin drip per Surgery--will place order now; if hemoglobin stable tomorrow a.m., can resume Eliquis.
HTN:
-Blood pressure is controlled/stable.
-Continue current medications.
Valvular heart disease:
-Echo 07/01/24: Normal left ventricular size, wall thickness and systolic function. LV ejection fraction is 55-60% by Lord's method of discs. Normal right ventricular size and function. Mild to moderate mitral regurgitation. Mild to moderate
aortic regurgitation. Moderate tricuspid regurgitation. Estimated pulmonary artery pressure of 53 mmHg. Assuming a right atrial pressure of 3 mmHg.
- Stable volume status.
Subjective: No cardiac complaints this a.m.; denies chest pain or shortness of breath.
Physical Exam
Vital Signs/Labs
Vital Signs
Temp Pulse Resp BP Pulse Ox
98.4 F 74 16 114/65 95
08/14/25 03:14 08/14/25 03:14 08/14/25 03:14 08/14/25 03:14 08/14/25 03:14
08/14/25 07:11
APTT 91.7 Sec (23.4-35.0) H 08/12/25 06:40
Magnesium 1.9 mg/dl (1.6-2.3) 08/10/25 07:24
Physical Exam
Constitutional: No acute distress and Comfortable
EENT: Anicteric
Cardiovascular: Rhythm & rate is regular, Pedal edema is absent, Systolic murmur present (Soft 2/6) and S1S2 is normal
Respiratory: Respiratory effort normal and Lungs clear to auscul.
GI: Soft
Neuro/Psych: AO x 3
Other: Skin (Warm, dry, intact)
Data Reviewed
-
Date of Service: August 14, 2025
EKG: Tracing Personally Visualized and interpreted (Telemetry: Sinus rhythm, brief runs of PSVT)
Medical Tests (PFT, Pathology etc): Discussed with Physician (General Surgeon and Hospitalist) and Discussed with Patient
Labs: Labs Reviewed by me
[2025-08-14 08:14] LABS: ALT (SGPT) 68 U/L (0-35); AST (SGOT) 29 U/L (14-36); Albumin 3.8 g/dl (3.5-5.0); Alkaline Phosphatase 69 U/L (38-126); Blood Urea Nitrogen 12 mg/dl (7-17); Calcium 8.8 mg/dl (8.4-10.2); Carbon Dioxide 21 mmol/L (22-30); Chloride 103 mmol/L (98-107); Estimated Creatinine Clearance 42 ml/min; Glucose 114 mg/dl (70-99); Potassium 3.7 mmol/L (3.5-5.1); Sodium 134 mmol/L (135-145); Total Protein 6.4 g/dl (6.3-8.2); eGFR > 60.00
[2025-08-14 08:52] LABS: APTT 29.7 Sec (23.4-35.0)
[2025-08-14] MEDS: DIOVAN 160 MG PO (08:59)
[2025-08-14] MEDS: NORVASC 2.5 MG PO ×2 (08:59→19:40)
[2025-08-14] MEDS: TOPROL XL 25 MG PO (08:59)
[2025-08-14] MEDS: PROTONIX 40 MG PO (08:59)
[2025-08-14] MEDS: HEPARIN 4000 UNITS IV (09:09)
[2025-08-14] MEDS: HEPARIN 25000 UNITS/250 ML IV (09:10)
--- NOTE | 2025-08-14 11:12 | W.PN.HOSP.TC ---
Today's Communication/Plan
-
Resumed heparin.
Switch to Eliquis tomorrow if hemoglobin stable and patient can be discharged tomorrow
Assessment / Plan
Assessment / Plan
Impression:
Patient is a pleasant 89y F with PMH significant for paroxysmal A-Fib, hypertension and RA who presents to ED complaining of back pain and N/V. Patient states that she felt very well for much of the day today. She had a rich dinner (roast beef
and chocolate cake) and noted some mild nausea when going to bed this evening. While lying in bed she developed pain in the R posterior shoulder / upper back. She noted some 'tightness' in the chest and then developed N/V. Patient took her vitals
at home and noted that her BP was elevated (190/90) and her pulse was elevated (100-110). She called family for assistance and was brought to the ED for further evaluation.
Patient had additional episodes of emesis in the ambulance. Emesis was describes as mostly food material. No blood. No abdominal pain.
After arrival to the ED, patient states that she feels much improved. She has no residual pain or nausea at the time of my exam.
Patient is noted to be in A-Fib on monitor here in the ED - s/p cardioversion 08/06 here.
Patient admitted on the hospital service, kept n.p.o., started on IV Zosyn, GI consulted, cardiology consulted, ultrasound abdomen ordered
Converted to sinus rhythm, ultrasound done showed Gallstones with pericholecystic fluid and extrahepatic biliary dilatation concerning for acute cholecystitis. Clinical and laboratory correlation recommended. Surgery team consulted.
MRCP ordered shows no CBD dilation.
Status post lap rudolph 08/14.
Resumed heparin if hemoglobin stable to be discharged back on Eliquis on 08/15.
Assessment/plan:
Cholelithiasis �Acute Cholecystitis
Admitted to telemetry floor for further evaluation and treatment.
Abdominal pain most likely consistent with biliary colic (shoulder discomfort, N/V, postprandial onset).
CT: gallstones without wall thickening.
LFTs mildly elevated compared to baseline.
Given tenderness, leukocytosis, patient was started on IV Zosyn. (WBCs improved)
Abdomen ultrasound pending.
GI consulted for recommendations.
If confirmed acute cholecystitis will obtain surgery consult.
Monitor for recurrent symptoms.
Ultrasound done showed Gallstones with pericholecystic fluid and extrahepatic biliary dilatation concerning for acute cholecystitis. Clinical and laboratory correlation recommended. Surgery team consulted.
Clear liquid diet for now, need 48 hours washout for Eliquis.
MRCP ordered shows no CBD dilation.
Status post lap rudolph 08/14.
Resumed heparin if hemoglobin stable to be discharged back on Eliquis on 08/15.
Paroxysmal Atrial Fibrillation
s/p Cardioversion on 07/20 and 08/06.
Currently in A-Fib, initial HR ~100 bpm, now heart rate better controlled--> now sinus rhythm
Continue current regimen (including dofetilide,Toprol-XL, held Eliquis).
Cardiology consulted.
Started on heparin drip bridge (held for the surgery) then resume postoperatively.
Switch to Eliquis tomorrow if hemoglobin stable and patient can be discharged tomorrow.
Hypokalemia
IV replacement given in ED.
Continue to monitor
History of Ischemic Colitis
No abdominal pain currently.
Lactate 1.2.
CT shows celiac/SMA stenosis.
Monitor for symptoms; avoid hypovolemia/hypotension.
Benign Hypertension
Stable; continue home regimen with holding parameters.
Rheumatoid / Psoriatic Arthritis
On Enbrel chronically; last dose Wednesday.
Hold for now.
CODE STATUS: DNR
DVT prophylaxis: Heparin drip
Diet: low fat diet
Family communication: Discussed with family at bedside
Disposition: Resumed heparin.
Switch to Eliquis tomorrow if hemoglobin stable and patient can be discharged tomorrow.
Total time spent on today's encounter was 55 minutes which included time spent in counseling the patient/family regarding diagnosis and treatment plan as listed above, goals of care, and symptom management. Case was discussed with nursing staff,
specialists, and care coordinators/case management. All labs and imaging personally reviewed by me. Remainder the time spent in detailed review of previous records, lab data, imaging, and other medical provider documentation.
Part of this note was created using voice recognition system. Occasional wrong word or �sound alike� substitutions may have inadvertently occurred due to the inherent limitations of voice recognition software. If noted kindly bring it to my
attention for correction.
Anticipated Discharge: Within 24 hours
Subjective/Interval History
-
Date of Service: August 14, 2025
Patient seen and examined at bedside, denies any chest pain or shortness of breath, no abdominal pain, no nausea, no vomiting, no diarrhea or constipation.
Objective Data
-
Labs:
Laboratory Results
08/14/25 08/14/25 08/14/25
07:11 08:20 15:15
WBC 9.3
Hgb 10.6 L
Hct 31.7 L
Plt Count 341
APTT 29.7 Pending
Sodium 134 L
Potassium 3.7
Chloride 103
Carbon Dioxide 21 L
BUN 12
Creatinine 0.8
Glucose 114 H
Calcium 8.8
Total Bilirubin 1.3
AST 29
ALT 68 H
Alkaline Phosphatase 69
Vital Signs:
Vital Signs
Temp Pulse Resp BP Pulse Ox
98.6 F 71 16 144/59 96
08/14/25 07:40 08/14/25 07:40 08/14/25 07:40 08/14/25 07:40 08/14/25 07:40
I&O
08/13/25 08/14/25 08/15/25
06:59 06:59 06:59
Intake Total 480 / 480 1300 / 1300
Balance 480 / 480 1300 / 1300
Physical Exam
-
General: Well Developed, Well Nourished, No Apparent Distress and Comfortable
HEENT: Normocephalic, Atraumatic, Moist Mucous Membranes, No Ptosis, PERRLA and Nose Appears Normal
Respiratory: Clear to Auscultation and Non Labored Respirations
Cardiac: Regular Rhythm and S1/S2
Breast: Deferred by me
GI: Soft, Nontender, Nondistended and Normal Bowel Sounds
Genito-urinary: No Costovertebral Tender
Musculoskeletal: No Clubbing, No Cyanosis and No Edema
Skin: Warm
Neuro: Awake, Alert, Oriented, AO x 3 and No Motor Deficits
Psych: Calm
[2025-08-14 16:12] LABS: APTT 69.3 Sec (23.4-35.0)
[2025-08-14] MEDS: LIPITOR 10 MG PO (17:19)
[2025-08-14 22:48] LABS: APTT 86.6 Sec (23.4-35.0)
[2025-08-15 03:10] VITALS: BP 150/62
[2025-08-15 04:44] LABS: APTT 93.5 Sec (23.4-35.0)
[2025-08-15] MEDS: TIKOSYN 125 MCG PO (05:14)
[2025-08-15 06:02] VITALS: BMI 25.9
[2025-08-15 07:40] VITALS: BP 163/67
[2025-08-15 08:26] LABS: ALT (SGPT) 53 U/L (0-35); AST (SGOT) 32 U/L (14-36); Albumin 3.8 g/dl (3.5-5.0); Alkaline Phosphatase 55 U/L (38-126); Blood Urea Nitrogen 14 mg/dl (7-17); Calcium 8.9 mg/dl (8.4-10.2); Carbon Dioxide 26 mmol/L (22-30); Chloride 104 mmol/L (98-107); Estimated Creatinine Clearance 42 ml/min; Glucose 96 mg/dl (70-99); Potassium 3.6 mmol/L (3.5-5.1); Sodium 134 mmol/L (135-145); Total Protein 6.4 g/dl (6.3-8.2); eGFR > 60.00
--- NOTE | 2025-08-15 08:29 | W.PN.CD ---
Today's Communication / Plan
-
If hgb stable, resume Eliquis and ok for dc from CV standpoint.
Impression / Plan
-
89-year-old female with paroxysmal atrial fibrillation on Tikosyn and Eliquis and 2 recent cardioversions (07/20 and 08/07) who presents with nausea, vomiting, and abdominal pain found to have cholecystitis. Cardiology is consulted for preoperative
risk stratification and management of A-fib.
Cardiology: [facility]
Acute Cholecystitis:
- Status-post successful laparoscopic cholecystectomy 08/13
- Continue routine postop management as directed by surgery.
PAF/PSVT:
-Was in rate controlled afib on arrival; spontaneously converted to sinus rhythm.
-importantly, she was cardioverted on 07/20/25 and 08/06/25. Eliquis held for cholecystectomy. She is on IV heparin which requires intensive monitoring.
-Continue dofetilide and metoprolol and telemetry monitoring.
-Very brief runs of PSVT noted on telemetry; currently in sinus rhythm.
-If hemoglobin stable this AM, resume Eliquis
HTN:
-Blood pressure is controlled/stable.
-Continue current medications.
Valvular heart disease:
-Echo 07/01/24: Normal left ventricular size, wall thickness and systolic function. LV ejection fraction is 55-60% by Lord's method of discs. Normal right ventricular size and function. Mild to moderate mitral regurgitation. Mild to moderate
aortic regurgitation. Moderate tricuspid regurgitation. Estimated pulmonary artery pressure of 53 mmHg. Assuming a right atrial pressure of 3 mmHg.
- Stable volume status.
Subjective: No cardiac complaints this a.m.; denies chest pain or shortness of breath. Up and walking around.
Physical Exam
Vital Signs/Labs
Vital Signs
Temp Pulse Resp BP Pulse Ox
98.3 F 65 18 150/62 96
08/15/25 03:10 08/15/25 03:10 08/15/25 03:10 08/15/25 03:10 08/15/25 03:10
08/14/25 08/15/25 08/16/25
06:59 06:59 06:59
Actual Weight 150 lb 9.6 oz
08/15/25 07:15
APTT 93.5 Sec (23.4-35.0) H 08/15/25 04:23
Magnesium 1.9 mg/dl (1.6-2.3) 08/10/25 07:24
Physical Exam
Constitutional: No acute distress and Comfortable
Cardiovascular: Rhythm & rate is regular, Pedal edema is absent, S1S2 is normal and Murmur/rub/gallop absent
Respiratory: Respiratory effort normal and Lungs clear to auscul.
Neuro/Psych: AO x 3
Data Reviewed
-
Date of Service: August 15, 2025
Medical Decision Making: Reviewed Test Results, Test Interpretation and Review of Case with other Provider
EKG: Tracing Personally Visualized and interpreted
Echo: Report Reviewed by me
Labs: Labs Reviewed by me
[2025-08-15 08:33] LABS: Hematocrit 31.0 % (37.0-47.0); Hemoglobin 10.5 g/dL (12.0-16.0); Mean Corp Hgb Conc. 33.9 g/dL (33.0-37.0); Mean Corpuscular Volume 87.1 fL (81.0-99.0); Platelet Count 296 10^3/uL (130-400); Red Cell Dist. Width 12.9 % (11.5-14.5)
[2025-08-15] MEDS: TOPROL XL 25 MG PO ×2 (09:05→09:07)
[2025-08-15] MEDS: DIOVAN 160 MG PO (09:05)
[2025-08-15] MEDS: NORVASC 2.5 MG PO (09:08)
[2025-08-15] MEDS: ELIQUIS 5 MG PO (09:08)
[2025-08-15] MEDS: PROTONIX 40 MG PO (09:08)
[2025-08-15 11:25] VITALS: BP 134/56
--- NOTE | 2025-08-15 13:16 | W.DCSUMMARY ---
Discharge Summary
Discharge Data
Date of Admission: 08/10/25
Date of Discharge: 08/15/25
Total time spent discharging patient (in min): 45
-
Pending Results: No
Hospital Course
Ms. Eason is an 89-year-old female with a medical history of paroxysmal A-fib (on Eliquis and dofetilide), hypertension, rheumatoid/psoriatic arthritis (on Enbrel), ischemic colitis, and breast cancer who presented with chest tightness, back pain
and nausea with vomiting. She was found to be in A-fib but spontaneously converted to normal sinus rhythm. Imaging of her abdomen showed concern for acute cholecystitis. MRCP showed no CBD dilatation. She was brought to the OR with general
surgery for laparoscopic cholecystectomy on 08/14 and tolerated the procedure well. Her home Eliquis was held perioperatively and she was anticoagulated with IV heparin. Her hemoglobin has remained stable. Her Eliquis has now been restarted. She
was medically stable at time of hospital discharge. She will need outpatient follow-up with general surgery and with her primary care physician.
General: No Apparent Distress, Comfortable and Conversant
HEENT: NormoCephalic, Moist mucous membranes, Atraumatic
Respiratory: Clear and Non Labored Respirations
Cardiac: S1/S2 and Regular Rhythm; No Rub or Gallop
GI: Soft, Non Distended and Normal Bowel Sounds, laparoscopic port scars CDI
Musculoskeletal: No Edema, no deformity
: NO Bocanegra
Neuro: Awake, Alert, Nonfocal/grossly intact
Psych: Calm and Intact Judgment/Insight
Discharge Plan
-
Patient Disposition: Home (Routine Discharge)
Discharge Diagnosis/Procedures: Laparoscopic cholecystectomy with cholangiogram
Condition: Good
Diet: Regular and Low Fat
Additional Diets: If issues with bloating or diarrhea follow a low-fat diet
Activity: No strenuous activity
Additional Activity: No heavy lifting (>20 lbs) or strenuous activities for 2 to 3 weeks postoperatively
Driving Restrictions: No driving if too sore or taking narcotics
Bathing Restrictions: OK to Shower
Wound Care: Keep incisions clean and dry. Glue will flake off in 2 to 3 weeks. Stitches will dissolve.
Activity Restrictions/Additional Instructions:
Call for fevers (>100.5), nausea or vomiting, worsening abdominal pain
Referrals:
Jerrod Diego MD [Family Provider, Family Practice]
Sourav Emmanuel MD [Active, Surgical] - in two to four weeks
Prescriptions:
Continued
Enbrel 50 MG/ML syringe
50 mg SQ PERKINS
amlodipine 2.5 MG tablet
2.5 mg PO BID
simvastatin 20 MG tablet
20 mg PO QPM
cholecalciferol (vitamin D3) 2,000 UNITS tablet
2,000 units PO DAILY
Eliquis 5 mg tablet
5 mg PO BID Qty: 60 3RF
dofetilide 125 mcg Capsule
125 mcg PO Q12H Qty: 60 3RF
valsartan 160 mg Tablet
160 mg PO DAILY Qty: 30 0RF
furosemide 20 mg Tablet
20 mg PO DAILY PRN (Reason: swelling)
metoprolol succinate 25 mg Tablet Extended Release 24 Hr
25 mg PO DAILY
Discharge Orders:
Discharge Patient (As Directed); Ordered 08/15/25
Ordered By: Hoang Mendoza
Discharge Date and Time
Print Language: MOHAWK
--- NOTE | 2025-08-15 14:00 | CM ---
Patient has been medically cleared for discharge to home with no additional skilled services. Daughter will transport home.
== END 2025-08-15 15:15 | disposition home or self-care (01) | DRG 419 ==
LOC: 2 SOUTH 04:25
PROVIDERS: General Practice; Internal Medicine; Internal Medicine Cardiovascular Disease; Nurse Practitioner; Radiology Diagnostic Radiology; Student in an Organized Health Care Education/Training Program; Surgery; ADMITTING PHYSICIAN Hospitalist; ATTENDING PHYSICIAN Internal Medicine; CONSULT PHYSICIAN Surgery; EMERGENCY PHYSICIAN Emergency Medicine; FAMILY PHYSICIAN Family Medicine; OTHER PHYSICIAN Internal Medicine Gastroenterology; OTHER PHYSICIAN Student in an Organized Health Care Education/Training Program
PROC: BF101ZZ Fluoroscopy of Bile Ducts using Low Osmolar Contrast (ICD-10-PCS; 2025-08-13)
PROC: 0FT44ZZ Resection of Gallbladder, Percutaneous Endoscopic Approach (ICD-10-PCS; 2025-08-13)
DX: K80.62 Calculus of gallbladder and bile duct with acute cholecystitis without obstruction (principal); I10 Essential (primary) hypertension; Z85.3 Personal history of malignant neoplasm of breast; L40.50 Arthropathic psoriasis, unspecified; Z79.01 Long term (current) use of anticoagulants; I48.0 Paroxysmal atrial fibrillation; Z85.820 Personal history of malignant melanoma of skin; I25.10 Atherosclerotic heart disease of native coronary artery without angina pectoris; Z87.19 Personal history of other diseases of the digestive system; E87.6 Hypokalemia; Z66 Do not resuscitate; D64.9 Anemia, unspecified; E78.00 Pure hypercholesterolemia, unspecified; K57.30 Diverticulosis of large intestine without perforation or abscess without bleeding; K66.0 Peritoneal adhesions (postprocedural) (postinfection); Z79.899 Other long term (current) drug therapy
CPT/HCPCS: 71275; 74174; 74183; 74300; 76000; 76700; 80053; 82248; 83605; 83690; 83735; 84484; 85025; 85027; 85730; 88304; 93005; 96374; 96375; 99285; A4300; A9575; Q9967